=== PATIENT | male | born 2005 | race Caucasian/White ===

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

== ENCOUNTER 2024-02-06 22:45 | Outpatient (CLI) | payer OTHER, SELFPAY ==
--- OUTSIDE RECORDS SUMMARY | 2024-02-19 15:55 | XMS_ITS | Referral Summary ---
Author Organization [place] Address [address] [facility] [place] [address] Care Team Providers Care Tank Cleaner Name Role Phone Clinic, [facility] Primary Care Provider + Allergies Active Allergy Reactions Criticality Noted Date Comments Seasonal Allergies 12/06/2011 Symptoms include rhinnitis, itching eyes, etc. Medications Medication Sig Dispensed Refills Start Date End Date Status diphenhydrAMINE (BENADRYL) 25 MG capsuleIndications:Bip olar disorder, unspecified (H) Take 1 capsule by mouth At Bedtime. 30 capsule 0 12/12/2011 Active risperiDONE (RISPERDAL M-TABS) 0.5 MG disintegrating tabletIndications:Bipo lar disorder, unspecified (H) Take 1 tablet by mouth 2 times [...] Advance Directives For more information, please contact: [phone] * Full Code (Latest Code Status on File) Date Activated Date Inactivated Comments 12/06/2011 4:13 AM 12/13/2011 1:17 PM Care Teams Tank Cleaner Relationship Specialty Start Date End Date [facility] [address] [place] [phone] PCP - General 04/30/19
--- OUTSIDE RECORDS SUMMARY | 2024-02-19 15:55 | XMS_ITS | Clinical Summary ---
Author Organization [place] Address [address] [facility] [place] [address] Care Team Providers Care Dinkey Locomotive Operator Name Role Phone Clinic, [facility] Primary Care Provider + Allergies Active Allergy [...] Advance Directives For more information, please contact: [phone] * Full Code (Latest Code Status on File) Date Activated Date Inactivated Comments 12/06/2011 4:13 AM 12/13/2011 1:17 PM Care Teams Dinkey Locomotive Operator Relationship Specialty Start Date End Date [facility], [facility] [address] [place] [address] PCP - General 04/30/19
--- OUTSIDE RECORDS SUMMARY | 2024-02-19 15:55 | XMS_ITS | Encounter Summary ---
Author Organization [place] Address [address] [place] [address] Care Team Providers Care Crate Builder Name Role Phone [facility] Primary Care Provider + Encounter Details Date Type Department Care Team ([facility] st Contact Info) Description 12/05/2011 Telephone [facility] Behavioral Health Intake [address] [place] [address] Generic, Behavioral Intake, Social History Tobacco Use [...] on filedocumented in this encounter Care Teams Crate Builder Relationship Specialty Start Date End Date [facility], [facility] [address] [place] [phone] PCP - General 04/30/19 documented as of this encounter
--- OUTSIDE RECORDS SUMMARY | 2024-02-19 15:55 | XMS_ITS | Clinical Summary ---
Author Organization [facility] Address [place], [place] [address] Care Team Providers Care Chicken Hatchery Helper Name Role Phone Marie Cunningham MD Primary [...] Description 11/21/2023 4:20 PM CDT Orders Only [facility] [address] [place] [address] Lab 11/21/2023 Travel 11/20/[address] [facility] [address] [place] [address] Kellie Leung NP Lab 11/19/2023 4:25 PM CDT Office Visit [facility] [address] [place] [address] Kellie Leung, WATER PLANT MAINTENANCE MECHANIC Medication Management 11/19/2023 Travel from Last 3 Months Immunizations Name Administration Dates Next Due AMB Influenza, (Flumist) Maria De Jesus e Intranasal,LAIV4 (Flu Clinic Only) 01/28/2012 DTaP 10/19/2004 [id number] (Pediarix) 2003,2003,0 2003 DTaP-IPV (Kinrix) 07/15/2009 Dtap [...] Alcohol/Drug Paternal Grandfather Heart Disease Paternal Grandfather [place] Psychiatric illness Paternal Grandfather depression, violent Thyroid [...] Date Smoking Tobacco: Former Cigarettes 0.5 1 2 020 - 2020 Smokeless Tobacco: Current Snuff [...] for age 18-79 2021 COVID-19 vaccine series ( season) 2024 Influenza for age 9-49 01/12/2024 [...] - 4.9 g/dL 11/21/2023 11:09 PM CDT [facility] TR[facility] LABORATORY PROTEIN,TOTAL 6.6 6.0 - 8.0 g/dL 11/21/2023 11:09 PM CDT [facility] TR[facility] LAB[facility] BILIRUBIN,TOTAL 1.2 0.0 - 1.2 mg/dL 11/21/2023 11:09 PM CDT [facility] TR[facility] LAB[facility]ORY BILIRUBIN,DIRECT 0.3 0.0 - 0.3 mg/dL 11/21/2023 11:09 PM CDT [facility] TR[facility] LABORATORY BILIRUBIN,INDIRE CT 0.9(H) 0.2 - 0.8 mg/dL 11/21/2023 11:09 PM CDT [facility] TRAL LABORATORY ALK PHOSPHATASE 62 40 - 129 IU/L 11/21/2023 11:09 PM CDT [facility] ALT (SGPT) 46 10 - 50 IU/L 11/21/2023 11:09 PM CDT [facility] AST (SGOT) 28 10 - 50 IU/L 11/21/2023 11:09 PM CDT [facility] TR[facility]ORY Blood BLOOD SPECIMEN / Unknown Venipuncture / Unknown 11/21/2023 4:21 PM CDT 11/21/2023 4:21 PM CDT Kellie Leung WATER PLANT MAINTENANCE MECHANIC CHEMISTRY [facility] [address] [place] [address], [place] from Last 3 Months Care Teams Chicken Hatchery Helper Relationship Specialty [place] [address] [place] [address] PCP - General Family Practice 09/01/15
== END 2024-02-06 22:46 | disposition home or self-care (01) ==
LOC: AMB 02-19 15:53
PROVIDERS: Visit Provider Family Medicine
DX: T14.90XA Injury, unspecified, initial encounter (principal); F10.129 Alcohol abuse with intoxication, unspecified; V29.39XA Other motorcycle (driver) (passenger) injured in unspecified nontraffic accident, initial encounter; Y92.488 Other paved roadways as the place of occurrence of the external cause
CPT/HCPCS: A0998

== ENCOUNTER 2024-02-07 00:27 | Emergency (ER) | payer OTHER, SELFPAY ==
[2024-02-07 00:31] VITALS: BP 135/89; PULSE 89; RESP 20; TEMP 36.7; O2SAT 99
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
--- OUTSIDE RECORDS SUMMARY | 2024-02-07 00:32 | XMS_ITS | Encounter Summary ---
Author Organization [place] Address [address] [place] [address] Care Team Providers Care Dressage Judge Name Role Phone [facility] Primary Care Provider + Encounter Details Date Type Department Care Team ([facility] st Contact Info) Description 12/05/2011 Telephone [facility] Behavioral Health Intake [address] [place] [address] Generic, Behavioral Intake, Social History Tobacco Use Types Packs/Day Years Used Date Smoking Tobacco: Never Assessed Sex and Gender Information Value Date Recorded Sex Assigned at Male 09/26/2023 9:40 AM CDT Gender Identity Male 09/26/2023 9:40 AM CDT Sexual Orientation Straight 09/26/2023 9: 40 AM CDT documented as of this encounter Plan of Treatment Not on file documented as of this encounter Visit Diagnoses Not on filedocumented in this encounter Care Teams Dressage Judge Relationship Specialty Start Date End Date [facility] [address] [place] [phone] PCP - General 04/30/19 documented as of this encounter
--- OUTSIDE RECORDS SUMMARY | 2024-02-07 00:32 | XMS_ITS | Clinical Summary ---
Author Organization [place] Address [address] [facility] [place] [address] Care Team Providers Care Ultrasound Technologist Name Role Phone Clinic, [facility] Primary Care Provider + Allergies Active Allergy Reactions Criticality Noted Date Comments Seasonal Allergies 12/06/2011 Symptoms include rhinnitis, itching eyes, etc. Medications Medication Sig Dispensed Refills Start Date End Date Status diphenhydrAMINE (BENADRYL) 25 MG capsuleIndications:Bip olar disorder, unspecified Take 1 capsule by mouth At Bedtime. 30 capsule 0 12/12/2011 Active risperiDONE (RISPERDAL M-TABS) 0.5 MG disintegrating tabletIndications:Bipo lar disorder, unspecified Take 1 tablet by mouth 2 times daily. 60 tablet 0 12/12/2011 Active guanFACINE (TENEX) 1 MG tablet Take 1 tablet (1 mg) by mouth At Bedtime 30 tablet 04/30/2019 Active traZODone (DESYREL) 100 MG tablet Take 1 tablet (100 mg) by mouth at bedtime 30 tablet 09/25/2023 Active melatonin 3 MG tablet Take 1 tablet (3 mg) by mouth nightly as needed for sleep 30 tablet 09/25/2023 Active Active Problems Problem Noted Date Diagnosed Date Adjustment disorder with mixed anxiety and depre ssed mood 09/25/2023 Bipolar disorder 12/12/2011 Overview: Problem list name updated by automated process. Provider to review Suicidal ideation 12/06/2011 Immunizations Name Administration Dates Next Due DTaP, Unspecified 07/15/2009,10/19/2004 DTaP/HepB/IPV 2003,2003,2003 Flu, Unspecified 03/26/2007,06/24/2006 Historic Hib Hib-titer 10/19/2004,2003,05/2003 MMR 07/15/2009,07/31/2004 Pneumococcal (PCV 7) 07/31/2004,2003,10/13,2003 Poliovirus, inactivated (IPV) 07/15/2009 Varicella 07/15/2009,07/31/2004 Family History Medical History Relation Comments Bipolar Disorder Other Bipolar Disorder Paternal Uncle Schizophrenia Paternal Uncle Substance Abuse Paternal Uncle Relation Status Comments Other Paternal Uncle Social History Tobacco Use Types Packs/Day Years Used Date Smoking Tobacco: Never Assessed Alcohol Use Standard Drinks/Week Comments No 0 (1 standard drink = 0.6 oz pur e alcohol) Adolescent Education Answer Date Record ed Getting School Help Needed Not on file 09/24 Sex and Gender Information Value Date Recorded Sex Assigned at Male 09/26/2023 9:40 AM CDT Gender Identity Male 09/26/2023 9:40 AM CDT Sexual Orientation Straight 09/26/2023 9: 40 AM CDT Last Filed Vital Signs Vital Sign Reading Time Taken Comments Blood Pressure 137/98 09/25/2023 11:29 AM CDT Pulse 89 09/25/2023 11:29 AM CDT Temperature 37.2 ??C (98.9 ??F) 09/25/2023 8:08 AM CD T Respiratory Rate 20 09/25/2023 8:08 AM CDT Oxygen Saturation 99% 09/25/2023 11:31 AM CDT Inhaled Oxygen Concentration - - Weight 104 kg (229 lb 4.5 oz) 09/25/2023 8:08 AM CDT Height 188 cm (6' 2) 09/25/2023 8:08 AM CDT Body Mass Index 29.44 09/25/2023 8:08 AM CDT Plan of Treatment Health Maintenance Due Date Last Done Comments ADVANCE CARE PLANNING 2003 ANNUAL REVIEW OF HM ORDERS 2003 YEARLY PREVENTIVE VISIT 2003 HIV SCREENING 2018 HEPATITIS C SCREENING 2021 PHQ-2 (once per calendar year) 2023 COVID-19 Vaccine ( season) 2024 INFLUENZA VACCINE (#1) 2024 8, 01/28/2012, 03/26/2007, Additional history exists DTAP/TDAP/TD IMMUNIZATION (7 - Td or Tdap) 12/20/2025 12/21/2015, 07/15/2009, 07/15/2009, Additional history exists HEPATITIS B IMMUNIZATION Completed 004, 2003, 2003 Pneumococcal Vaccine: Pediatrics (0 to 5 Years) and At-Risk Patients (6 to 64 Years) Aged Out 07/31/2004, 2003, 2003, Additional history exists No longer eligible based on patient's age to complete this topic MENINGITIS IMMUNIZATION Aged Out 12/21/2015 No l onger eligible based on patient's age to complete this topic HPV IMMUNIZATION Completed 04/24/2018, 03/25/2017 RSV MONOCLONAL ANTIBODY Aged Out No l onger eligible based on patient's age to complete this topic Advance Directives For more information, please contact: [phone] * Full Code (Latest Code Status on File) Date Activated Date Inactivated Comments 12/06/2011 4:13 AM 12/13/2011 1:17 PM Care Teams Ultrasound Technologist Relationship Specialty Start Date End Date [facility] [address] [place] [phone] PCP - General 04/30/19
--- OUTSIDE RECORDS SUMMARY | 2024-02-07 00:32 | XMS_ITS | Referral Summary ---
Author Organization [place] Address [address] [facility] [place] [address] Care Team Providers Care Coastal Tug Mate Name Role Phone Clinic, [facility] Primary Care Provider + Allergies Active Allergy [...] 07/31/2004,2003,10/13,2003 Poliovirus, inactivated (IPV) 07/15/2009 Varicella 07/15/2009,07/31/2004 Social History Tobacco Use Types Packs/Day Years [...] 09/25/2023 8:08 AM CDT Plan of Treatment Not on file Advance Directives For more information, please contact: [phone] * Full Code (Latest Code Status on File) Date Activated Date Inactivated Comments 12/06/2011 4:13 AM 12/13/2011 1:17 PM Care Teams Coastal Tug Mate Relationship Specialty Start Date End Date [facility] [address] [place] [phone] PCP - General 04/30/19
--- OUTSIDE RECORDS SUMMARY | 2024-02-07 00:32 | XMS_ITS | Clinical Summary ---
Author Organization [facility] & [facility] Address [place], [place] [address] Care Team Providers Care Woodworking Machine Offbearer Name Role Phone Marie Cunningham MD Primary Care Provider + Allergies No known active allergies Medications Medication Sig Dispensed Refills Start Date End Date Status melatonin 5 mg tab tablet TAKE 1 TABLET BY MOUTH EVERY DAY AT BEDTIME NEEDED FOR SLEEP Active traZODone (DESYREL) 100 mg tabletIndications:Chr onic insomnia Take 1 Tablet (100 mg) by mouth at bedtime if needed for Sleep. 90 Tablet 1 11/19/2023 Active Active Problems No known active problems Resolved Problems Problem Noted Date Diagnosed Date Resolved Date Adjustment disorder with mix ed anxiety and depressed mood 09/25/2023 11/20/2023 Myopia of both eyes with astigmatism 03/16/2016 11/20/2023 Bipolar disorder 08/01/2010 11/20/2023 Overview (11/19/2023): Problem list name updated by automated process. 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) 08/01/2010 11/20/2023 Encounters Date Type Department Care Team Description 11/21/2023 4:20 PM CDT Orders Only [facility] [address] [place] [address] Lab 11/21/2023 Travel 11/20/2023 Telephone [facility] [address] [place] [address] Kellie Leung NP Lab 11/19/2023 4:25 PM CDT Office Visit [facility] [address] [place] [address] Kellie Leung, BOND CLERK Medication Management 11/19/2023 Travel 11/15/2023 Telephone [facility] [address] [place] [address] Marie Cunningham MD Error-please disregard from Last 3 Months Immunizations Name Administration Dates Next Due AMB Influenza, (Flumist) Maria De Jesus e Intranasal,LAIV4 (Flu Clinic Only) 01/28/2012 DTaP 10/19/2004 [id number] (Pediarix) 2003,2003,0 2003 DTaP-IPV (Kinrix) 07/15/2009 Dtap Unspecified Formulation 07/15/2009,10/20/19 05 HIB HbOC (HibTITER) 10/19/2004,2003,2003 HPV 9 (Gardasil 9) 04/24/2018,03/25/2017 Hepatitis A (Peds) 04/24/2018,03/25/2017 Inactivated Polio Vaccine 07/15/2009 Influenza Virus, Unspecified 03/26/2007,06/24/19 07 Influenza, IIV3 (Age >=3 years) 03/26/2007,06/24 Influenza, IIV4 (=>6mos) MDV 04/24/2018 MENINGOCOCCAL VACCINE 2 VIAL 2MO-55YO (MENVEO) 12/21/2015 MMR 07/15/2009,07/31/2004 Pneumococcal conj 7-Valent (Prevnar 7) 0 07/31/2004,2003,2003,08/11 Tdap 12/21/2015 Varicella Vaccine 07/15/2009,07/31/2004 Family History Medical History Relation Name Comments Hyperlipidemia Father Unknown Maternal Grandfather Cancer Maternal Grandmother skin Cancer-colon Maternal Grandmother Asthma Mother Alcohol/Drug Paternal Grandfather Heart Disease Paternal Grandfather [place] Psychiatric illness Paternal Grandfather depression, violent Thyroid Disease Paternal Grandmother Psychiatric illness Paternal Uncle 1 schi zophrenia Alcohol/Drug Paternal Uncle 2 Alcohol/Drug Paternal Uncle 3 Alcohol/Drug Paternal Uncle 4 Alcohol/Drug Paternal Uncle 5 Relation Name Status Comments Father Alive Maternal Grandfather Alive Maternal Grandmother Alive Mother Alive Paternal Grandfather Alive Paternal Grandmother Alive Paternal Uncle 1 Alive Paternal Uncle 2 Alive Paternal Uncle 3 Alive Paternal Uncle 4 Alive Paternal Uncle 5 Alive Social History Tobacco Use Types Packs/Day Years Used Date Smoking Tobacco: Former Cigarettes 0.5 1 020 - 2020 Smokeless Tobacco: Current Snuff Comments:Weekly use Alcohol Use Standard Drinks/Week Comments Not Currently 0 (1 standard drink = 0.6 oz pur e alcohol) sep 27 2023-sober date PHQ-2 Answer Date Recorded PHQ-2 TOTAL SCORE 2 11/19/2023 Social Connections Answer Date Recorded Frequency of Communication with Friends and Fami ly 0 11/19/2023 Financial Resource Strain Answer Date R ecorded Difficulty of Paying Living Expenses 3 11/19/2023 Difficulty of Paying Living Expenses Not on file 11/19/2023 Food Insecurity Answer Date Recorded Worried About Running Out of Food in the Last Ye ar 1 11/19/2023 Transportation Needs Answer Date Record ed Lack of Transportation (Medical) 1 11/19/2023 Housing Stability Answer Date Recorded Unable to Pay for Housing in the Last Year 1 11/19/2023 Sex and Gender Information Value Date Recorded Sex Assigned at Not on file Gender Identity Not on file Sexual Orientation Not on file Obstetrics History Last Filed Vital Signs Vital Sign Reading Time Taken Comments Blood Pressure 118/69 11/19/2023 4:43 PM CDT Pulse 90 11/19/2023 4:43 PM CDT Temperature 36.9 ??C (98.5 ??F) 10/03/2018 1 2:04 PM CDT Respiratory Rate 16 11/19/2023 4:43 PM CDT Oxygen Saturation 97% 11/19/2023 4:4 3 PM CDT Inhaled Oxygen Concentration - - Weight 104.5 kg (230 lb 4.8 oz) 11/19/2023 4:43 PM CDT with boots on Height 191.8 cm (6' 3.5) 11/19/2023 4: 43 PM CDT with boots on Body Mass Index 28.41 11/19/2023 4:43 PM CDT Plan of Treatment Health Maintenance Due Date Last Done Comments HIV for age 15-65 2018 Well Child Check for age 3-20 03/27/2019 03/27/2018, 12/21/2015, 07/14/2009, Additional history exists Hepatitis C screening for age 18-79 2021 COVID-19 vaccine series (24 season) 2024 Influenza for age 9-49 01/12/2024 8, 01/28/2012, 03/26/2007, Additional history exists BMI (ht and wt on same day) for age 18+ 11/18/2024 11/19/2023, 01/01/2022 Depression screening for age 12+ 11/20/2024 11/21/2023, 11/20/2023, 11/19/2023, Additional history exists Tetanus booster 12/20/2025 12/21/2015 Pneumococcal series for age 6-64 Aged Out 07/31/2004, 2003, 2003, Additional history exists No longer eligible based on patient's age to complete this topic Meningococcal series for age 11-21 Aged Out 12/21/2015 No longer eligible based on patient's age to complete this topic Tdap Completed 12/21/2015 HPV series for age 9-26 Completed 04/24/2018, 03/25 Procedures Procedure Name Priority Date/Time Associated Diagnosis Comments HEPATIC FUNCTION PANEL Routine 11/21/2023 4:21 PM CDT Elevated LFTs from Last 3 Months Results * (ABNORMAL) LIVER PANEL (HEPATIC FUNCTION PANEL) (11/21/2023 4:21 PM CDT) ALBUMIN 4.5 4.0 - 4.9 g/dL 11/21/2023 11:09 PM CDT [facility] LAB[facility]ORY PROTEIN,TOTAL 6.6 6.0 - 8.0 g/dL 11/21/2023 11:09 PM CDT [facility]ORY BILIRUBIN,TOTAL 1.2 0.0 - 1.2 mg/dL 11/21/2023 11:09 PM CDT [facility] TR[facility] LABORATORY BILIRUBIN,DIRECT 0.3 0.0 - 0.3 mg/dL 11/21/2023 11:09 PM CDT [facility] TRAL LABORATORY BILIRUBIN,INDIRE CT 0.9(H) 0.2 - 0.8 mg/dL 11/21/2023 11:09 PM CDT [facility] TRAL LABORATORY ALK PHOSPHATASE 62 40 - 129 IU/L 11/21/2023 11:09 PM CDT [facility] ALT (SGPT) 46 10 - 50 IU/L 11/21/2023 11:09 PM CDT [facility] AST (SGOT) 28 10 - 50 IU/L 11/21/2023 11:09 PM CDT [facility] Blood BLOOD SPECIMEN / Unknown Venipuncture / Unknown 11/21/2023 4:21 PM CDT 11/21/2023 4:21 PM CDT Kellie Leung BOND CLERK CHEMI[facility]Y [facility] [address] [place] [address], [place] from Last 3 Months Care Teams Woodworking Machine Offbearer Relationship Specialty [place] [address] [place] [address] PCP - General Family Practice 09/01/15
[2024-02-07 00:36] VITALS: BP 135/89; PULSE 89; RESP 20; TEMP 36.7; O2SAT 99
[2024-02-07 00:55] VITALS: BP 135/89; PULSE 89; RESP 20; TEMP 36.7
== END 2024-02-07 00:55 | disposition home or self-care (01) ==
LOC: ED 00:49
PROVIDERS: Emergency Provider Internal Medicine
DX: F10.129 Alcohol abuse with intoxication, unspecified (principal)
CPT/HCPCS: 99283

== ENCOUNTER 2024-03-20 19:59 | Emergency (ER) | payer OTHER, SELFPAY ==
--- OUTSIDE RECORDS SUMMARY | 2024-03-20 20:02 | XMS_ITS | Clinical Summary ---
Author Organization [facility] & [facility] Address [place], [place] [address] Care Team Providers Care Packaging Operator Name Role Phone Marie Cunningham MD Primary [...] deficit disorder w ith hyperactivity(314.01) 08/01/2010 11/20/2023 Immunizations Name Administration Dates Next Due AMB Influenza, (Flumist) Maria De Jesus e Intranasal,LAIV4 (Flu Clinic Only) 01/28/2012 DTaP 10/19/2004 [id number] (Pediarix) 2003,2003,0 2003 DTaP-IPV (Kinrix) 07/15/2009 Dtap [...] Alcohol/Drug Paternal Grandfather Heart Disease Paternal Grandfather [place] Psychiatric illness Paternal Grandfather depression, violent Thyroid [...] 2 11/19/2023 Social Connections Answer Date Recorded Do you often feel lonely or isolated from those around you? 0 11/19/2023 Financial Resource Strain Answer Date R ecorded Difficulty of Paying Living Expenses 3 11/19/2023 Difficulty of Paying Living Expenses Not on file 11/19/2023 Food Insecurity Answer Date Recorded Do you worry your food will run out before you are able to buy more? 1 11/19/2023 Transportation Needs Answer Date Record ed Does lack of transportation keep you from medica l appointments? 1 11/19/2023 Does lack of transportation keep you from work, meetings or getting things that you need? 1 11/19/2023 Housing Stability Answer Date Recorded What is your housing situation today? 1 11/19/2023 Sex and Gender Information Value [...] series for age 9-26 Completed 04/24/2018, 03/25 Care Teams Packaging Operator Relationship Specialty [place] [address] [place] [address] PCP - General Family Practice 09/01/15
--- OUTSIDE RECORDS SUMMARY | 2024-03-20 20:02 | XMS_ITS | Encounter Summary ---
Author Organization [place] Address [address] [place] [address] Care Team Providers Care Filterer Name Role Phone [facility], [facility] Primary Care Provider + Encounter Details Date Type Department Care Team ([facility] Contact Info) Description 12/05/2011 Telephone [facility] Intake [address] [place] [phone] Generic, Behavioral Intake, MD Social History Tobacco Use Types Packs/Day Years Used Date Smoking Tobacco: Never Assessed Sex and Gender Information Value Date Recorded Sex Assigned at Male 09/26/2023 9:40 AM CDT Legal Sex Male 5:18 AM NAT INSTRUCTOR Gender Identity Male 09/26/2023 9:40 AM CDT Sexual Orientation Straight 09/26/2023 9: 40 AM CDT documented as of this encounter Plan of Treatment Not on file documented as of this encounter Visit Diagnoses Not on filedocumented in this encounter Care Teams Filterer Relationship Specialty Start Date End Date [facility], [facility] [address] [place] [phone] PCP - General 04/30/19 documented as of this encounter
--- OUTSIDE RECORDS SUMMARY | 2024-03-20 20:02 | XMS_ITS | Clinical Summary ---
Author Organization [place] Address [facility] [place] [address] Care Team Providers Care Stewardesses Teacher Name Role Phone [facility], [facility] Primary Care Provider + Allergies Active Allergy Reactions Criticality Noted Date Comments Seasonal Allergies 12/06/2011 Symptoms include rhinnitis, itching eyes, etc. Medications diphenhydrAMINE (BENADRYL) 25 MG capsuleIndications: Bipolar disorder, unspecified (H) Take 1 capsule by mouth At Bedtime. 30 capsule 0 2 Active risperiDONE (RISPERDAL M-TABS) 0.5 MG disintegrating tabletIndications:B ipolar disorder, unspecified (H) Take 1 tablet by mouth 2 times daily. 60 tablet 0 2 Active guanFACINE (TENEX) 1 MG tablet Take 1 tablet (1 mg) by mouth At Bedtime 30 tablet 9 Active traZODone (DESYREL) 100 MG tablet Take 1 tablet (100 mg) by mouth at bedtime 30 tablet 4 Active melatonin 3 MG tablet Take 1 tablet (3 mg) by mouth nightly as needed for sleep 30 tablet 4 Active Active Problems Problem Noted Date Diagnosed Date Adjustment disorder with mixed anxiety and depre ssed mood 09/25/2023 Bipolar disorder 12/12/2011 Overview (02/11/2015): Problem list name updated by automated process. 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 Gender Identity Male 09/26/2023 9:40 AM CDT [...] (once per calendar year) 2023 COVID-19 Vaccine (1 - 2024-25 season) 2024 INFLUENZA VACCINE (#1) 2024 8, 01/28/2012, 03/26/2007, Additional history exists DTAP/TDAP/TD IMMUNIZATION (7 - Td or Tdap) 12/20/2025 12/21/2015, 07/15/2009, 07/15/2009, Additional history exists RSV VACCINE (1 - 1-dose 75+ series) 2078 HEPATITIS B IMMUNIZATION Completed 004, 2003, 2003 [...] on patient's age to complete this topic Insurance [employer] Member Subscriber Plan / Payer (Ef fective 2018-Present) Name:Frank Proctor Relation to Subscriber:Child Name:WERO PROCTOR Date of :1977 (Home) [address]: [address] [place] [address] Payer ID:[id number] (NAIC) Type:HMO Address: [place] [id number] Simple Admit Simple Admit Advance Directives For more information, please contact: [phone] * Full Code (Latest Code Status on File) Date Activated Date Inactivated Comments 12/06/2011 4:13 AM 12/13/2011 1:17 PM Care Teams Stewardesses Teacher Relationship Specialty Start Date End Date [facility] [address] [place] [phone] PCP - General 04/30/19
--- OUTSIDE RECORDS SUMMARY | 2024-03-20 20:02 | XMS_ITS | Referral Summary ---
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 COMMERCIAL Advance Directives For more information, please contact: [phone] * Full Code (Latest Code Status on File) Date Activated Date Inactivated Comments 12/06/2011 4:13 AM 12/13/2011 1:17 PM Care Teams Gum Machine Filler Relationship Specialty Start Date End Date [facility], [facility] [id number] [place], [place] [address] [phone] PCP - General 04/30/19
[2024-03-20 20:14] VITALS: BP 122/78; PULSE 122; RESP 16; TEMP 36.8; O2SAT 98; BMI 22.5
--- NOTE | 2024-03-20 20:31 | CRLHL7_ITS ---
For Patients: As a result of the Century Cures Act, medical imaging exams and procedure reports are released immediately into your electronic medical record. You may view this report before your referring provider. If you have questions, please contact your health care provider. INDICATION: Chest pain. TECHNIQUE: Chest 2 view. COMPARISON: None. FINDINGS: No focal consolidation, pleural effusion, or pneumothorax. Normal heart size and pulmonary vascularity. The bones are unremarkable. IMPRESSION: No acute cardiopulmonary findings. Dictated by Lindsey Foreman MD @ 03/20/2024 9:05:49 PM (Electronically Signed)
--- NOTE | 2024-03-20 20:36 | ED.GENADULT ---
HPI - General Adult General Date Seen: 03/20/24 Chief complaint: Chest Pain Stated complaint: heart palpitations Time Seen by Provider: 03/20/24 20:22 Source: patient Mode of arrival: ambulatory Limitations: no limitations History of Present Illness HPI narrative: Patient is a 18-year-old male presenting for palpitations. He has been having issues with palpitations and chest pain for several years now but has not been seen due to monetary issues. States symptoms have been going on since yesterday and got worse today. Pain radiates to his bilateral jaw and thinks it may go to his arms to but cannot say for sure. Describes the pain as oppressive and a 5/10 in intensity. Is a same symptoms she has been having on and off for a few years. They seem to happen randomly. Is not aware of any known heart issues. Denies lightheadedness, dizziness, fevers, chills, abdominal pain. Does have some shortness of breath when the palpitations occur. No other concerns noted. Does state he is feeling very anxious. Related Data Home Medications ?Medication ?Instructions ?Recorded ?Confirmed trazodone 100 mg tablet 100 mg PO QPM PRN insomnia 02/07/24 02/07/24 Allergies Allergy/AdvReac Type Severity Reaction Status Date / Time No Known Drug Allergies Allergy Verified 02/07/24 00:33 Review of Systems Status of ROS: Reports: 10 or more systems reviewed and unremarkable except as noted in History and below [facility] Medical History No significant past medical history Surgical History No significant past surgical history Social History Smoking Status: Never smoker Second hand tobacco smoke exposure: No Non-prescribed substance use: former substance user Exam Narrative: Exam Narrative: Const: Well-nourished, Well-developed, in mild distress Eyes: PERRL, no conjunctival injection, and symmetrical lids HENT: Atraumatic external nose and ears. Moist mucous membranes. Neck: Symmetric, trachea midline, No thyromegaly. CVS: RRR, No murmurs or gallops. Peripheral pulses 2+ and equal in all extremities RESP: Unlabored respiratory effort. Clear to auscultation bilaterally. GI: Nontender/Nondistended, No rebound or guarding. MSK:Extremities w/o deformity, Normal Active ROM Skin: Warm, Dry. No rashes or lesions. Neuro: Normal Muscle tone, No focal neurological deficits. Psych: Awake, Alert, & Oriented x3. Appears very anxious Const: Vital Signs, click to edit/add: Vital Signs - 24 hr 03/20/24 20:14 03/20/24 20:48 03/20/24 21:00 Temperature 98.2 F Pulse Rate 118 H 119 H Pulse Rate [Left F emoral] 122 H Respiratory Rate 16 Blood Pressure Blood Pressure [Ri ght Upper Arm] 122/78 Pulse Oximetry 98 98 95 Oxygen Delivery Me thod Room Air 03/20/24 21:09 03/20/24 21:15 03/20/24 21:30 Temperature Pulse Rate 119 H 122 H 123 H Pulse Rate [Left F emoral] Respiratory Rate Blood Pressure 122/89 Blood Pressure [Ri ght Upper Arm] Pulse Oximetry 95 98 98 Oxygen Delivery Me thod Course Vital Signs Vital signs: Initial Vital Signs Temperature 98.2 F 03/20/24 20:14 Temperature Source Temporal Artery Scan 03/20/24 20:14 Pulse Rate 122 H 03/20/24 20:14 Pulse Rhythm Regular 03/20/24 20:14 Respiratory Rate 16 03/20/24 20:14 Blood Pressure 122/78 03/20/24 20:14 Blood Pressure Mean 92 03/20/24 20:14 Blood Pressure Position Sitting 03/20/24 20:14 Pulse Oximetry 98 03/20/24 20:14 Oxygen Delivery Method Room Air 03/20/24 20:14 Vital Signs Temperature 98.2 F 03/20/24 20:14 Pulse Rate 122 H 03/20/24 20:14 Respiratory Rate 16 03/20/24 20:14 Blood Pressure 122/78 03/20/24 20:14 Pulse Oximetry 98 03/20/24 20:14 Oxygen Delivery Method Room Air 03/20/24 20:14 Temperature 98.2 F 03/20/24 20:14 Pulse Rate 123 H 03/20/24 21:30 Respiratory Rate 16 03/20/24 20:14 Blood Pressure 122/89 03/20/24 21:09 Pulse Oximetry 98 03/20/24 21:30 Oxygen Delivery Method Room Air 03/20/24 20:14 Medications Administered Medications: Discontinued Medications Generic Name Dose Route Start Last Admin Trade Name Xochitl PRN Reason Stop Dose Admin Lorazepam 1 mg 03/20/24 20:32 03/20/24 20:40 Lorazepam 2 Mg/Ml Inj IVP 03/20/24 20:33 1 mg ONCE ONE Administration Medical Decision Making MDM Narrative Medical decision making narrative: Patient is a 18-year-old male presenting to the emergency department for palpitations and chest pain. The differential diagnosis of chest pain is broad and includes common etiologies such as musculoskeletal strain, GERD, pneumonia, etc. More serious etiologies considered include PE, coronary artery disease, pneumothorax, aortic dissection, aortic aneurysm. Will do a D-dimer, troponin, EKG, BMP, COVID/flu/RSV, CBC, urinalysis, urine drug screen. Will also give him some Ativan for his anxiety. He seems very anxious and that is probably what is causing this anxiety. Was very fidgety and taking at the lines. Was also trying to take off the pulse ox and was swearing quite a bit about his symptoms while having difficulty sitting still for the EKG. Unsure if he has taking any drugs recently. EKG shows sinus tachycardia but no other concerning findings. D-dimer within normal limits. PE can be ruled out. Chest x-ray reviewed by myself the radiologist shows no concerning abnormalities. Urine drug screen shows no concerning abnormalities. CBC and BMP showed no concerning findings. Viral swabs are negative. Concerning symptoms have been going on for a while I do not believe a repeat troponin is necessary. Initial troponin within normal limits. At this point he is still tachycardic and still appearing very anxious even after the Ativan. He continues to want a rip everything off. I do not find any acute abnormalities though also I offered him a Zio patch for continuous monitoring. Did give him information is at a primary care follow-up to view the Zio patch. I did speak to his girlfriend also his states he does get a little bit loopy after he takes trazodone any did take trazodone prior to arrival. Patient will be discharged. Of note patient continued to act on throughout his time in the emergency department. We may have wait for his girlfriend to come and pick him up. When she arrived I asked her about his behavior and she states this is normal for him when he takes his trazodone. He has seemed to really understand what is going on or what I am same whether the girlfriend again states this is normal for him when he takes trazodone. She feels comfortable taking him home. I spoke to her about possible carbon monoxide poisoning she states gives an apartment in no on else having symptoms would be unlikely. Lab Data Labs: Lab Results 03/20/24 03/20/24 03/20/24 Range/Units 20:32 20:33 20:50 WBC 7.45 (4.50-11.00) K/uL RBC 5.30 (4.30-5.90) m/uL Hgb 16.3 (13.5-17.5) gm/dL Hct 47.2 (37.0-53.0) % MCV 89 (80-100) fL MCH 31 (26-34) pg MCHC 35 (32-36) gm/dL RDW Coeff of Radha 12.2 (11.5-15.5) % Plt Count 312 (140-440) K/uL Neut % (Auto) 48.5 (42.0-72.0) % Lymph % (Auto) 44.7 H (20-44) % Maries % (Auto) 5.9 (0.0-11.0) % Eos % (Auto) 0.5 (0.0-7.0) % Baso % (Auto) 0.3 (0.0-3.0) % Neut # (Auto) 3.61 (1.7-7.0) K/uL Lymph # (Auto) 3.30 H (0.90-2.90) K/uL Maries # (Auto) 0.40 (0.00-0.90) K/UL Eos # (Auto) 0.04 (0.00-0.50) K/uL Baso # (Auto) 0.02 (0.00-0.30) K/uL Abs Immat Gran (auto) 0.01 (0.00-0.30) K/uL Imm/Tot Granulo (auto) 0.1 % D-Dimer Quant (PE/DVT) 0.31 (0.00-0.50) ug/ml Sodium 145 (135-149) mmol/L Potassium 3.7 (3.6-5.1) mmol/L Chloride 102 (96-114) mmol/L Carbon Dioxide 25 (20-32) mmol/L Anion Gap 18 H (7-15) mEq/L BUN 9 (5-24) mg/dL Creatinine 1.0 (0.5-1.5) mg/dL Estimated Creat Clear 132.30 Estimated GFR 111 ml/min Glucose 86 (60-115) mg/dL Calcium 9.4 (8.4-10.6) mg/dL Urine Color Yellow (Yellow) Urine Appearance Clear (Clear) Urine pH 7.0 (5.0-8.5) Ur Specific [place] 1.015 (1.000-1.030) Urine Protein Negative (Negative) Urine Glucose (UA) Negative (Negative) Urine Ketones Negative (Negative) Urine Blood Negative (Negative) Urine Nitrite Negative (Negative) Urine Bilirubin Negative (Negative) Urine Urobilinogen 0.2 (0.2-1.0) Ur Leukocyte Esterase Negative (Negative) Urine RBC 0-2 (0-2) Urine WBC 0-2 (0-5) Ur Squamous Epith Cells None (None-Few) Urine Bacteria None (None) Urine Opiates Screen Negative (Negative) Ur Oxycodone Screen Negative (Negative) Urine Methadone Screen Negative (Negative) Ur Barbiturates Screen Negative (Negative) U Tricyclic Antidepress Negative (Negative) Ur Phencyclidine Scrn Negative (Negative) Ur Amphetamines Screen Negative (Negative) U Methamphetamines Scrn Negative (Negative) U Benzodiazepines Scrn Negative (Negative) Urine Cocaine Screen Negative (Negative) U Marijuana (THC) Screen Negative (Negative) Ur Drug Screen Comment See Note SARS-CoV-2 (PCR) Negative SARS-CoV-2 (Negative) Influenza Type A (PCR) Negative PCR FLU A (Negative) Influenza Type B (PCR) Negative PCR FLU B (Negative) RSV (PCR) Negative PCR RSV (Negative) Lab Acknowledgement POC Troponin I 0.00 L (0.01-0.04) ng/ml 03/20/24 Range/Units 21:54 WBC (4.50-11.00) K/uL RBC (4.30-5.90) m/uL Hgb (13.5-17.5) gm/dL Hct (37.0-53.0) % MCV (80-100) fL MCH (26-34) pg MCHC (32-36) gm/dL RDW Coeff of Radha (11.5-15.5) % Plt Count (140-440) K/uL Neut % (Auto) (42.0-72.0) % Lymph % (Auto) (20-44) % Maries % (Auto) (0.0-11.0) % Eos % (Auto) (0.0-7.0) % Baso % (Auto) (0.0-3.0) % Neut # (Auto) (1.7-7.0) K/uL Lymph # (Auto) (0.90-2.90) K/uL Maries # (Auto) (0.00-0.90) K/UL Eos # (Auto) (0.00-0.50) K/uL Baso # (Auto) (0.00-0.30) K/uL Abs Immat Gran (auto) (0.00-0.30) K/uL Imm/Tot Granulo (auto) % D-Dimer Quant (PE/DVT) (0.00-0.50) ug/ml Sodium (135-149) mmol/L Potassium (3.6-5.1) mmol/L Chloride (96-114) mmol/L Carbon Dioxide (20-32) mmol/L Anion Gap (7-15) mEq/L BUN (5-24) mg/dL Creatinine (0.5-1.5) mg/dL Estimated Creat Clear Estimated GFR ml/min Glucose (60-115) mg/dL Calcium (8.4-10.6) mg/dL Urine Color (Yellow) Urine Appearance (Clear) Urine pH (5.0-8.5) Ur Specific [place] (1.000-1.030) Urine Protein (Negative) Urine Glucose (UA) (Negative) Urine Ketones (Negative) Urine Blood (Negative) Urine Nitrite (Negative) Urine Bilirubin (Negative) Urine Urobilinogen (0.2-1.0) Ur Leukocyte Esterase (Negative) Urine RBC (0-2) Urine WBC (0-5) Ur Squamous Epith Cells (None-Few) Urine Bacteria (None) Urine Opiates Screen (Negative) Ur Oxycodone Screen (Negative) Urine Methadone Screen (Negative) Ur Barbiturates Screen (Negative) U Tricyclic Antidepress (Negative) Ur Phencyclidine Scrn (Negative) Ur Amphetamines Screen (Negative) U Methamphetamines Scrn (Negative) U Benzodiazepines Scrn (Negative) Urine Cocaine Screen (Negative) U Marijuana (THC) Screen (Negative) Ur Drug Screen Comment SARS-CoV-2 (PCR) (Negative) Influenza Type A (PCR) (Negative) Influenza Type B (PCR) (Negative) RSV (PCR) (Negative) Lab Acknowledgement Test Added POC Troponin I (0.01-0.04) ng/ml Imaging Data Chest x-ray: Attestation: I have reviewed the pertinent imaging results. Radiologist's impression: No acute cardiopulmonary findings. Dictated by Lindsey Foreman MD @ 03/20/2024 9:05:49 PM ECG Data Attestation: I personally reviewed and interpreted this ECG as follows: Prior ECG tracings: not available for review Interpretation: Sinus tachycardia with a rate of 124 beats per minute, rightward bleeding axis, normal intervals, normal axis, no ST or T-wave abnormalities. Discharge Plan Discharge Clinical Impression: Sinus tachycardia Patient Disposition: Home, Self-Care Condition: Stable Instructions: Tachycardia (ED) Additional Instructions: Make sure to wear the Zio patch for the full allotted time. On Saturday call the number that was provided for you on the card to set up a primary care follow-up appointment to review the results. Return to emergency department for any new or worsening symptoms. Activity Level: No Restrictions Discharge Diet: Regular Prescriptions: No Action trazodone 100 mg tablet 100 mg PO QPM PRN (Reason: insomnia) Follow Up/Referrals: Provider,Not a Local [Primary Care Provider] - Stand Alone Forms: [employer] Info Instructions
--- OUTSIDE RECORDS SUMMARY | 2024-03-20 20:37 | XMS_ITS | Clinical Summary ---
Author Organization [employer] [facility] Address [place], [place] [address] Care Team Providers Care Hogshead Opener Name Role Phone Marie Cunningham MD Primary [...] Intranasal,LAIV4 (Flu Clinic Only) 01/28/2012 DTaP 10/19/2004 [id number] (Pediarix) 2003,2003,0 2003 DTaP-IPV (Kinrix) 07/15/2009 Dtap [...] Alcohol/Drug Paternal Grandfather Heart Disease Paternal Grandfather [place] Psychiatric illness Paternal Grandfather depression, violent Thyroid [...] age 9-26 Completed 04/24/2018, 03/25 Care Teams Hogshead Opener Relationship Specialty [place] [address] [place] [address] PCP - General Family Practice 09/01/15
--- OUTSIDE RECORDS SUMMARY | 2024-03-20 20:37 | XMS_ITS | Encounter Summary ---
Author Organization [place] Address [address] [place] [address] Care Team Providers Care Candy Attendant Name Role Phone [facility], 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 [address] [place] [phone] PCP - General 04/30/19 documented as of this encounter
--- OUTSIDE RECORDS SUMMARY | 2024-03-20 20:37 | XMS_ITS | Clinical Summary ---
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 Gender Identity Male 09/26/2023 9:40 AM [...] patient's age to complete this topic Insurance [employer] Member Subscriber Plan / Payer (Ef fective 2018-Present) Name:Frank Proctor Relation to Subscriber:Child Name:WERO PROCTOR Date of :1977 (Home) Address: [address] [place] [id number] Payer ID:[id number] (NAIC) Type:HMO Address: [place] [id number] [facility] Advance Directives For more information, please contact: [phone] * Full Code (Latest Code Status on File) Date Activated Date Inactivated Comments 12/06/2011 4:13 AM 12/13/2011 1:17 PM Care Teams Care Transitions Manager Relationship Specialty Start Date End Date [facility] [address] [place] [phone] PCP - General 04/30/19
--- OUTSIDE RECORDS SUMMARY | 2024-03-20 20:37 | XMS_ITS | Referral Summary ---
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 Gender Identity Male 09/26/2023 9:40 AM CDT [...] Plan of Treatment Not on file Insurance [place] [employer] Member Subscriber Plan / Payer (Ef fective 2018-Present) Name:Frank Proctor Relation to Subscriber:Child Name:WERO PROCTOR Date of :1977 (Home) Address: [address] [place] [address] Payer ID:[id number] (NAIC) Type:HMO Address: [place] [id number] [employer] [facility] COMMERCIAL Advance Directives For more information, please contact: [phone] * Full Code (Latest Code Status on File) Date Activated Date Inactivated Comments 12/06/2011 4:13 AM 12/13/2011 1:17 PM Care Teams House Nurse Relationship Specialty Start Date End Date [facility], [facility] [id number] [place], [place] [address] [phone] PCP - General 04/30/19
[2024-03-20] MEDS: LORazepam 2 MG/ML inj 1 MG IVP (20:40)
[2024-03-20 20:48] VITALS: PULSE 118; O2SAT 98
[2024-03-20 20:55] LABS: Appearance Urine Clear (Clear); Bilirubin Urine Negative (Negative); Blood Urine Negative (Negative); Color Urine Yellow (Yellow); Glucose Urine Negative (Negative); Ketones Urine Negative (Negative); Leukocyte Esterase Urine Negative (Negative); Nitrite Urine Negative (Negative); Protein Urine Negative (Negative); Specific Gravity Urine 1.015 (1.000-1.030); Urobilinogen Urine 0.2 (0.2-1.0)
[2024-03-20 20:55] LABS: Basophils Absolute Auto 0.02 K/uL (0.00-0.30); Basophils Percent Auto 0.3 % (0.0-3.0); Eosinophils Absolute Auto 0.04 K/uL (0.00-0.50); Eosinophils Percent Auto 0.5 % (0.0-7.0); Hematocrit 47.2 % (37.0-53.0); Hemoglobin* 16.3 gm/dL (13.5-17.5); Immature Granulocytes Abs Auto 0.01 K/uL (0.00-0.30); Immature Granulocytes Pct Auto 0.1 %; Lymphocytes Percent Auto 44.7 % (20-44); Mean Corpuscular HGB Conc 35 gm/dL (32-36); Mean Corpuscular Hemoglobin 31 pg (26-34); Mean Corpuscular Volume 89 fL (80-100); Monocytes Percent Auto 5.9 % (0.0-11.0); Neutrophils Absolute Auto 3.61 K/uL (1.7-7.0); Neutrophils Percent Auto 48.5 % (42.0-72.0); Platelet Count* 312 K/uL (140-440); RDW Coefficient of Variation % 12.2 % (11.5-15.5); White Blood Count* 7.45 K/uL (4.50-11.00)
[2024-03-20 21:00] VITALS: PULSE 119; O2SAT 95
[2024-03-20 21:02] LABS: Slide Review Reflex No
[2024-03-20 21:04] LABS: Amphetamine Screen Urine Negative (Negative); Cannabinoid Screen Urine Negative (Negative); Cocaine Screen Urine Negative (Negative); Methamphetamines Screen Urine Negative (Negative); Opiate Screen Urine Negative (Negative); Phencyclidine Screen Urine Negative (Negative)
[2024-03-20 21:05] LABS: Barbiturate Screen Urine Negative (Negative); Benzodiazepines Screen Urine Negative (Negative); Methadone Screen Urine Negative (Negative); Oxycodone Screen Urine Negative (Negative); Tricyclic Antidepressant Urine Negative (Negative)
[2024-03-20 21:09] VITALS: BP 122/89; PULSE 119; O2SAT 95
[2024-03-20 21:09] LABS: Chloride* 102 mmol/L (96-114); Potassium* 3.7 mmol/L (3.6-5.1); Sodium* 145 mmol/L (135-149)
[2024-03-20 21:12] LABS: Anion Gap 18 mEq/L (7-15); Blood Urea Nitrogen* 9 mg/dL (5-24); Carbon Dioxide* 25 mmol/L (20-32); Estimated Glomerular Filt Rate 111 ml/min; Glucose* 86 mg/dL (60-115)
[2024-03-20 21:13] LABS: Calcium* 9.4 mg/dL (8.4-10.6)
[2024-03-20 21:14] LABS: D Dimer Quantitative* 0.31 ug/ml (0.00-0.50)
[2024-03-20 21:15] VITALS: PULSE 122; O2SAT 98
[2024-03-20 21:20] LABS: PCR FLU A Negative PCR FLU A (Negative); PCR FLU B Negative PCR FLU B (Negative); PCR RSV Negative PCR RSV (Negative); SARS PCR* Negative SARS-CoV-2 (Negative)
[2024-03-20 21:20] LABS: RBC Urine 0-2 (0-2); WBC Urine 0-2 (0-5)
[2024-03-20 21:30] VITALS: PULSE 123; O2SAT 98
--- NOTE | 2024-03-20 21:46 | ED.NURSE ---
Pt is ripping all his cardiac stickers off of himself and is leaving. Doctor is talking to his girlfriend at this time. Pt is getting dressed and keeps changing his mind about wearing a Ziopatch. Doctor is talking to pt at this time. Pt did agree to put his Ziopatch on, pt has all his discharge paperwork with him at this time. help desk rep is unable to set up a clinic appt for the patient. The pt was given the name of the [facility] and the phone number that he needs to call and set up his appt for follow-up with his Ziopatch. Pt was given his Ziopatch kit and this nurse reviewed in detail with patient care of his Ziopatch. Pt was all given all his dispatch paperwork. Doctor states it is okay for patient to discharge at this time. Pt is talking in clear sentences and is walking with a steady gait at this time and is dressed appropriately for the weather.
--- NOTE | 2024-03-20 22:13 | ED.NURSE ---
Pt's girlfriend Deborah came to the ER and was able to give pt a ride home after discharge.
== END 2024-03-20 22:12 | disposition home or self-care (01) ==
PROVIDERS: Emergency Provider Student in an Organized Health Care Education/Training Program
DX: R00.0 Tachycardia, unspecified (principal)
CPT/HCPCS: 36415; 71046; 80048; 80306; 81001; 84443; 84484; 85025; 85379; 87631; 93005; 93246; 96374; 99283; 99284; 99285; J2060

== ENCOUNTER 2024-03-31 16:25 | Emergency (ER) | payer OTHER, SELFPAY ==
--- OUTSIDE RECORDS SUMMARY | 2024-03-31 16:27 | XMS_ITS | Clinical Summary ---
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 Gender Identity Male 09/26/2023 9:40 AM CDT Sexual Orientation Straight 09/26/2023 9: 40 AM CDT Last Filed Vital Signs Vital Sign Reading Time Taken Comments Blood Pressure 137/98 09/25/2023 11:29 AM CDT Pulse 89 09/25/2023 11:29 AM CDT Temperature 37.2 C (98.9 F) 09/25/2023 8:08 AM CDT Respiratory Rate 20 09/25/2023 8:08 AM CDT [...] patient's age to complete this topic Insurance [employer] Advance Directives For more information, please contact: [phone] * Full Code (Latest Code Status on File) Date Activated Date Inactivated Comments 12/06/2011 4:13 AM 12/13/2011 1:17 PM Care Teams Termite Exterminator Helper Relationship Specialty Start Date End Date [facility], [facility] [address] [place] [address] PCP - General 04/30/19
--- OUTSIDE RECORDS SUMMARY | 2024-03-31 16:27 | XMS_ITS | Referral Summary ---
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
--- OUTSIDE RECORDS SUMMARY | 2024-03-31 16:27 | XMS_ITS | Clinical Summary ---
Author Organization [employer] [facility] Address [place], [place] [address] Care Team Providers Care Instrument Sterilizer Name Role Phone Marie Cunningham MD Primary [...] Intranasal,LAIV4 (Flu Clinic Only) 01/28/2012 DTaP 10/19/2004 [id number] (Pediarix) 2003,2003,0 2003 DTaP-IPV (Kinrix) 07/15/2009 Dtap [...] 90 11/19/2023 4:43 PM CDT Temperature 36.9 C (98.5 F) 10/03/2018 12:04 PM CDT Respiratory Rate 16 11/19/2023 4:43 [...] age 9-26 Completed 04/24/2018, 03/25 Care Teams Instrument Sterilizer Relationship Specialty [place] [address] [place] [address] PCP - General Family Practice 09/01/15
--- OUTSIDE RECORDS SUMMARY | 2024-03-31 16:27 | XMS_ITS | Encounter Summary ---
Author Organization [place] Address [address] [place] [address] Care Team Providers Care Creative Producer Name Role Phone [facility] Primary Care Provider + Encounter Details Date Type Department Care Team ([facility] Contact Info) Description 12/05/2011 Telephone [facility] Behavioral Health Intake [address] [place] [phone] Generic, Behavioral Intake, MD Social History Tobacco Use Types Packs/Day Years Used Date Smoking Tobacco: Never Assessed Sex and Gender Information Value Date Recorded Sex Assigned at Male 09/26/2023 9:40 AM CDT 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
--- NOTE | 2024-03-31 16:46 | ED.NURSE ---
Patient was here to have a follow up appointment for his Zio patch heart monitor. He did not realize that he was supposed to go to the clinic for follow up and he still has his patch on until 04/03. This science writer assisted patient and made him a follow up appointment with Dr. Anderson for 04/07/2024 to go over his Zio patch results. He declined any need for an ER visit today as he only wanted a clinic visit. He will send in Zio patch on 04/03/2024.
--- OUTSIDE RECORDS SUMMARY | 2024-03-31 16:56 | XMS_ITS | Clinical Summary ---
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
--- OUTSIDE RECORDS SUMMARY | 2024-03-31 16:56 | XMS_ITS | Encounter Summary ---
Author Organization [place] Address [address] [place] [address] Care Team Providers Care Caser Up Name Role Phone [facility] Primary Care Provider + Encounter Details Date Type Department Care Team ([facility] Contact Info) Description 12/05/2011 Telephone [facility] Behavioral Health Intake [address] [place] [phone] Generic, Behavioral Intake, MD Social History Tobacco Use Types Packs/Day Years Used Date Smoking Tobacco: Never Assessed Sex and Gender Information Value Date Recorded Sex Assigned at Male 09/26/2023 9:40 AM CDT 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
--- OUTSIDE RECORDS SUMMARY | 2024-03-31 16:56 | XMS_ITS | Clinical Summary ---
Author Organization [facility] Address [place], [place] [address] Care Team Providers Care Commercial Credit Reviewer Name Role Phone Marie Cunningham MD Primary [...] Intranasal,LAIV4 (Flu Clinic Only) 01/28/2012 DTaP 10/19/2004 [id number] (Pediarix) 2003,2003,0 2003 DTaP-IPV (Kinrix) 07/15/2009 Dtap [...] Alcohol/Drug Paternal Grandfather Heart Disease Paternal Grandfather [place] Psychiatric illness Paternal Grandfather depression, violent Thyroid [...] age 9-26 Completed 04/24/2018, 03/25 Care Teams Commercial Credit Reviewer Relationship Specialty [place] [address] [place] [address] PCP - General Family Practice 09/01/15
--- OUTSIDE RECORDS SUMMARY | 2024-03-31 16:56 | XMS_ITS | Referral Summary ---
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 Gender Identity Male 09/26/2023 9:40 AM CDT [...] Plan of Treatment Not on file Insurance [employer] COMMERCIAL Colibri Heart Valve [employer]ERCIAL [employer] COMMERCIAL Advance Directives For more information, please contact: [phone] * Full Code (Latest Code Status on File) Date Activated Date Inactivated Comments 12/06/2011 4:13 AM 12/13/2011 1:17 PM Care Teams Liquid Flavor Compounder Relationship Specialty Start Date End Date [facility], [facility] [place] [id number] [place], [place] [address] [place] [address] PCP - General 04/30/19
== END 2024-03-31 16:55 | disposition left against medical advice (07) ==
PROVIDERS: PCP Internal Medicine
DX: Z53.21 Procedure and treatment not carried out due to patient leaving prior to being seen by health care provider (principal)

== ENCOUNTER 2024-05-08 20:06 | Emergency (ER) | payer OTHER, SELFPAY ==
[2024-05-08 20:18] VITALS: BP 111/68; PULSE 91; RESP 18; TEMP 36.6; O2SAT 98; BMI 21.8
--- NOTE | 2024-05-08 20:39 | ED_ITS ---
HPI - General Adult General Date Seen: 05/08/24 <Dana Oquendo MD - Last Filed: 05/11/24 12:12> Chief complaint: Psychiatric Problem/Disorder <Dana Oquendo MD - Last Filed: 05/11/24 12:12> Stated complaint: mental health eval <Dana Oquendo MD - Last Filed: 05/11/24 12:12> Time Seen by Provider: 05/08/24 20:12 <Dana Oquendo MD - Last Filed: 05/11/24 12:12> Source: patient <Dana Oquendo MD - Last Filed: 05/11/24 12:12> History of Present Illness HPI narrative: Patient is a 18-year-old male brought in by police. He had called a suicide hotline and told them that he was going to shoot himself with a shotgun. Per the plain clothes police officer, officers were dispatched to his apartment complex. He was ultimately found with a friend of his, they walked toward officers when officers were addressing him through their PA system. He apparently had left in his truck, he had a shot gun with him at that time which police have confiscated. Has a friend with him names Valdemar who he says is his best friend. 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 He acknowledges that he is stressed and sad, he tells me that he regrets the impulsive comment to the suicide hotline and says that he does not have any plans to hurt himself or anyone else. He says that he has called his mother who is a nurse, that he is planning on outpatient follow-up and knows he needs mental health help. His mother is on the way here. He smells faintly of alcohol. <Dana Oquendo MD - Last Filed: 05/11/24 12:12> Related Data Home medications: Home Medications ?Medication ?Instructions ?Recorded ?Confirmed trazodone 100 mg tablet 100 mg PO QPM PRN insomnia 02/07/24 02/07/24 <Dana Oquendo MD - Last Filed: 05/11/24 12:12> Allergies/adverse reactions: Allergies Allergy/AdvReac Type Severity Reaction Status Date / Time No Known Drug Allergies Allergy Verified 03/27/24 12:33 <Dana Oquendo MD - Last Filed: 05/11/24 12:12> Review of Systems Status of ROS: Reports: 10 or more systems reviewed and unremarkable except as noted in History and below <Dana Oquendo MD - Last Filed: 05/11/24 12:12> [facility] Medical History: Medical History Costochondritis (05/29/22) ?M94.0 - Chondrocostal junction syndrome [Tietze] (ICD-10) <Dana Oquendo MD - Last Filed: 05/11/24 12:12> Surgical History: Surgical History No significant past surgical history <Dana Oquendo MD - Last Filed: 05/11/24 12:12> Social History: Social History Smoking Status: Never smoker Do you use any of these nicotine containing products: None Second hand tobacco smoke exposure: No How often do you have a drink containing alcohol: monthly or less How many standard drinks containing alcohol do you have on a typical day: 1 or 2 How often do you have six or more drinks on one occasion: Less than monthly AUDIT-C Alcohol total score: 2 Non-prescribed substance use: former substance user service: No <Dana Oquendo MD - Last Filed: 05/11/24 12:12> Exam Narrative: Exam Narrative: Vital signs reviewed In general, alert, nontoxic male. Clinically sober. Well groomed, reasonable eye contact. He is cooperative and calm at this time. Head: Normocephalic, atraumatic. Eyes: Sclera clear. Pupils equal and reactive. ENT: Mucous membranes moist. Neck: Supple without adenopathy. Heart: Regular rate and rhythm without murmur. Lungs: Clear. No increased work of breathing, crackles or wheezes. Neurologic: Alert, conversant. Speech fluent, face symmetric. Moves all extremities equally. Skin: Warm, dry well perfused. Affect: Normal. <Dana Oquendo MD - Last Filed: 05/11/24 12:12> Const: Vital Signs, click to edit/add: Vital Signs - 24 hr 05/10/24 18:36 05/10/24 21:53 05/10/24 23:00 Pulse Rate [Pulse Oximeter] 103 H 84 Respiratory Rate 16 16 16 Blood Pressure [Ri ght Upper Arm] 122/81 103/73 Pulse Oximetry 98 97 Oxygen Delivery Me thod Room Air Room Air <Dana Oquendo MD - Last Filed: 05/11/24 12:12> Vital Signs, click to edit/add: Vital Signs - 24 hr 05/10/24 18:36 05/10/24 21:53 05/10/24 23:00 Pulse Rate [Pulse Oximeter] 103 H 84 Respiratory Rate 16 16 16 Blood Pressure [Ri ght Upper Arm] 122/81 103/73 Pulse Oximetry 98 97 Oxygen Delivery Me thod Room Air Room Air <Luna Mcduffie MD - Last Filed: 05/10/24 07:53> Vital Signs, click to edit/add: Vital Signs - 24 hr 05/10/24 18:36 05/10/24 21:53 05/10/24 23:00 Pulse Rate [Pulse Oximeter] 103 H 84 Respiratory Rate 16 16 16 Blood Pressure [Ri ght Upper Arm] 122/81 103/73 Pulse Oximetry 98 97 Oxygen Delivery Me thod Room Air Room Air <Kelli Medrano MD - Last Filed: 05/12/24 00:11> Vital Signs, click to edit/add: Vital Signs - 24 hr 05/10/24 18:36 05/10/24 21:53 05/10/24 23:00 Pulse Rate [Pulse Oximeter] 103 H 84 Respiratory Rate 16 16 16 Blood Pressure [Ri ght Upper Arm] 122/81 103/73 Pulse Oximetry 98 97 Oxygen Delivery Me thod Room Air Room Air <Taj Samuels MD - Last Filed: 05/09/24 23:26> Documenting provider has reviewed patient's vital signs: yes <Dana Oquendo MD - Last Filed: 05/11/24 12:12> Course Course ED Course: I spoke at length with the patient and also spoke with his friend. I am awaiting arrival of his mother so that I can talk with her as well. I also spoke with the police, who informed me that he was in fact in his car with a loaded shotgun. The gun was unloaded by his friend who found him just before police arrived, and was confiscated by police. After speaking with his mother, she has significant concerns about any outpatient plan, she is worried about all of the stressors that he has right now and would prefer inpatient placement. Patient was evaluated by Greg, I had both the nurse and the psychiatric nurse practitioner speak with him at length, and they also spoke with his mother. He is significantly minimizing the events of tonight, he is adamant that he wants to go home, but at this point we are all in agreement that we do not feel he can contract for safety. I am concerned about impulsivity and his tendency to minimize tonight's events, as well as his according to his mother fairly routine alcohol use. I did speak with Frank about this plan. He has become increasingly agitated and uncooperative. He is refusing to change out of clothes into scrubs, refusing search in order to remain in his clothes, refusing labs and asking what will happen if he leaves. As a result, I have placed him on a hold, and we are giving Zyprexa IM to control agitation and behavior. He has not been aggressive toward staff or overtly threatening, he is simply angry that we are not letting him go. <Dana Oquendo MD - Last Filed: 05/11/24 12:12> Reevaluation(s) Time of Reevaluation #1: 08:25 <Luna Mcduffie MD - Last Filed: 05/10/24 07:53> Reevaluation #1: Dr. Mcduffie- no issues overnight. Patient has p.r.n. agitation medicines ordered which he has not needed. He did willingly take a dose of olanzapine prior to my arrival for Dr. Oquendo. He has been calmer with this. Labs reviewed. No surprises. Blood pressures have been borderline low the patient is sleeping. Not unusual for someone his age. I do still think that he requires inpatient treatment. Will hand over care to incoming day shift partner. We were unable to locate a facility for inpatient treatment due to bed availability. We will need to consult Greg again in the morning and continue to pursue this. <Luna Mcduffie MD - Last Filed: 05/10/24 07:53> Time of Reevaluation #2: 13:15 <Kelli Medrano MD - Last Filed: 05/12/24 00:11> Reevaluation #2: Went to discuss with Frank his refusal of the COVID swab. He states we are making things worse, just wants to go home, states he will be staying with his mom and has an outpatient plan. I have had subsequent time to review notes, does not sound like that is the optimal plan for him. Reviewed with him that we really need to have him see Psychiatry and have emergent psychiatric evaluation. I cannot provide that here. He is frustrated, wants to be discharged but does agree to allow his nurse to do the COVID swab. Reviewed with Frank that I ultimately would love for all of our patients to be able to go home, but like other patients with other disease processes that we do not have the Specialty for here, patient sometimes need to be referred to other facilities to have that evaluation. <Kelli Medrano MD - Last Filed: 05/12/24 00:11> Reevaluation #3: [id number] patient remained cooperative on my shift, waiting for placement. <Taj Samuels MD - Last Filed: 05/09/24 23:26> Additional Reevaluation(s): - Dr. Mcduffie- patient slept almost all of my shift. He was observed on the video monitors only. Vital signs reviewed. Patient is stable. Has not required any of the p.r.n. medications. Did not have any interactions with staff during my shift. No behavioral concerns, outbursts or other abnormalities. Did not do a new assessment, would recommend this again on day shift. <Luna Mcduffie MD - Last Filed: 05/10/24 07:53> Vital Signs Vital signs: Initial Vital Signs Temperature 97.9 F 05/08/24 20:18 Temperature Source Temporal Artery Scan 05/08/24 20:18 Pulse Rate 91 05/08/24 20:18 Pulse Rhythm Regular 05/08/24 20:18 Respiratory Rate 18 05/08/24 20:18 Blood Pressure 111/68 05/08/24 20:18 Blood Pressure Mean 82 05/08/24 20:18 Blood Pressure Position Sitting 05/08/24 20:18 Pulse Oximetry 98 05/08/24 20:18 Oxygen Delivery Method Room Air 05/08/24 20:18 Vital Signs Temperature 97.9 F 05/08/24 20:18 Pulse Rate 91 05/08/24 20:18 Respiratory Rate 18 05/08/24 20:18 Blood Pressure 111/68 05/08/24 20:18 Pulse Oximetry 98 05/08/24 20:18 Oxygen Delivery Method Room Air 05/08/24 20:18 Temperature 97.8 F 05/09/24 15:14 Pulse Rate 84 05/10/24 21:53 Respiratory Rate 16 05/10/24 23:00 Blood Pressure 103/73 05/10/24 21:53 Pulse Oximetry 97 05/10/24 21:53 Oxygen Delivery Method Room Air 05/10/24 21:53 <Dana Oquendo MD - Last Filed: 05/11/24 12:12> Initial Vital Signs Temperature 97.9 F 05/08/24 20:18 Temperature Source Temporal Artery Scan 05/08/24 20:18 Pulse Rate 91 05/08/24 20:18 Pulse Rhythm Regular 05/08/24 20:18 Respiratory Rate 18 05/08/24 20:18 Blood Pressure 111/68 05/08/24 20:18 Blood Pressure Mean 82 05/08/24 20:18 Blood Pressure Position Sitting 05/08/24 20:18 Pulse Oximetry 98 05/08/24 20:18 Oxygen Delivery Method Room Air 05/08/24 20:18 Vital Signs Temperature 97.9 F 05/08/24 20:18 Pulse Rate 91 05/08/24 20:18 Respiratory Rate 18 05/08/24 20:18 Blood Pressure 111/68 05/08/24 20:18 Pulse Oximetry 98 05/08/24 20:18 Oxygen Delivery Method Room Air 05/08/24 20:18 Temperature 97.8 F 05/09/24 15:14 Pulse Rate 84 05/10/24 21:53 Respiratory Rate 16 05/10/24 23:00 Blood Pressure 103/73 05/10/24 21:53 Pulse Oximetry 97 05/10/24 21:53 Oxygen Delivery Method Room Air 05/10/24 21:53 <Luna Mcduffie MD - Last Filed: 05/10/24 07:53> Initial Vital Signs Temperature 97.9 F 05/08/24 20:18 Temperature Source Temporal Artery Scan 05/08/24 20:18 Pulse Rate 91 05/08/24 20:18 Pulse Rhythm Regular 05/08/24 20:18 Respiratory Rate 18 05/08/24 20:18 Blood Pressure 111/68 05/08/24 20:18 Blood Pressure Mean 82 05/08/24 20:18 Blood Pressure Position Sitting 05/08/24 20:18 Pulse Oximetry 98 05/08/24 20:18 Oxygen Delivery Method Room Air 05/08/24 20:18 Vital Signs Temperature 97.9 F 05/08/24 20:18 Pulse Rate 91 05/08/24 20:18 Respiratory Rate 18 05/08/24 20:18 Blood Pressure 111/68 05/08/24 20:18 Pulse Oximetry 98 05/08/24 20:18 Oxygen Delivery Method Room Air 05/08/24 20:18 Temperature 97.8 F 05/09/24 15:14 Pulse Rate 84 05/10/24 21:53 Respiratory Rate 16 05/10/24 23:00 Blood Pressure 103/73 05/10/24 21:53 Pulse Oximetry 97 05/10/24 21:53 Oxygen Delivery Method Room Air 05/10/24 21:53 <Kelli Medrano MD - Last Filed: 05/12/24 00:11> Initial Vital Signs Temperature 97.9 F 05/08/24 20:18 Temperature Source Temporal Artery Scan 05/08/24 20:18 Pulse Rate 91 05/08/24 20:18 Pulse Rhythm Regular 05/08/24 20:18 Respiratory Rate 18 05/08/24 20:18 Blood Pressure 111/68 05/08/24 20:18 Blood Pressure Mean 82 05/08/24 20:18 Blood Pressure Position Sitting 05/08/24 20:18 Pulse Oximetry 98 05/08/24 20:18 Oxygen Delivery Method Room Air 05/08/24 20:18 Vital Signs Temperature 97.9 F 05/08/24 20:18 Pulse Rate 91 05/08/24 20:18 Respiratory Rate 18 05/08/24 20:18 Blood Pressure 111/68 05/08/24 20:18 Pulse Oximetry 98 05/08/24 20:18 Oxygen Delivery Method Room Air 05/08/24 20:18 Temperature 97.8 F 05/09/24 15:14 Pulse Rate 84 05/10/24 21:53 Respiratory Rate 16 05/10/24 23:00 Blood Pressure 103/73 05/10/24 21:53 Pulse Oximetry 97 05/10/24 21:53 Oxygen Delivery Method Room Air 05/10/24 21:53 <Taj Samuels MD - Last Filed: 05/09/24 23:26> Medications Administered Medications: Discontinued Medications Generic Name Dose Route Start Last Admin Trade Name Freq PRN Reason Stop Dose Admin Lorazepam 1 - 2 mg 05/09/24 00:39 05/10/24 02:43 Lorazepam 1 Mg Tablet PO 1 mg Q1H PRN Administration Anxiety Nicotine 1 patch 05/10/24 21:15 05/10/24 21:52 Nicotine 21 Mg Patch TRANSDERMA 1 patch Q24H LIANET Administration Olanzapine 10 mg 05/08/24 23:03 05/08/24 23:19 Olanzapine 5 Mg/Ml Inj IM 05/08/24 23:04 10 mg ONCE ONE Administration Trazodone HCl 100 mg 05/09/24 00:39 05/10/24 21:52 Trazodone Hcl 50 Mg Tablet PO 100 mg HS PRN Administration <Dana Oquendo MD - Last Filed: 05/11/24 12:12> Discontinued Medications Generic Name Dose Route Start Last Admin Trade Name Freq PRN Reason Stop Dose Admin Lorazepam 1 - 2 mg 05/09/24 00:39 05/10/24 02:43 Lorazepam 1 Mg Tablet PO 1 mg Q1H PRN Administration Anxiety Nicotine 1 patch 05/10/24 21:15 05/10/24 21:52 Nicotine 21 Mg Patch TRANSDERMA 1 patch Q24H LIANET Administration Olanzapine 10 mg 05/08/24 23:03 05/08/24 23:19 Olanzapine 5 Mg/Ml Inj IM 05/08/24 23:04 10 mg ONCE ONE Administration Trazodone HCl 100 mg 05/09/24 00:39 05/10/24 21:52 Trazodone Hcl 50 Mg Tablet PO 100 mg HS PRN Administration <Luna Mcduffie MD - Last Filed: 05/10/24 07:53> Discontinued Medications Generic Name Dose Route Start Last Admin Trade Name Freq PRN Reason Stop Dose Admin Lorazepam 1 - 2 mg 05/09/24 00:39 05/10/24 02:43 Lorazepam 1 Mg Tablet PO 1 mg Q1H PRN Administration Anxiety Nicotine 1 patch 05/10/24 21:15 05/10/24 21:52 Nicotine 21 Mg Patch TRANSDERMA 1 patch Q24H LIANET Administration Olanzapine 10 mg 05/08/24 23:03 05/08/24 23:19 Olanzapine 5 Mg/Ml Inj IM 05/08/24 23:04 10 mg ONCE ONE Administration Trazodone HCl 100 mg 05/09/24 00:39 05/10/24 21:52 Trazodone Hcl 50 Mg Tablet PO 100 mg HS PRN Administration <Kelli Medrano MD - Last Filed: 05/12/24 00:11> Discontinued Medications Generic Name Dose Route Start Last Admin Trade Name Freq PRN Reason Stop Dose Admin Lorazepam 1 - 2 mg 05/09/24 00:39 05/10/24 02:43 Lorazepam 1 Mg Tablet PO 1 mg Q1H PRN Administration Anxiety Nicotine 1 patch 05/10/24 21:15 05/10/24 21:52 Nicotine 21 Mg Patch TRANSDERMA 1 patch Q24H LIANET Administration Olanzapine 10 mg 05/08/24 23:03 05/08/24 23:19 Olanzapine 5 Mg/Ml Inj IM 05/08/24 23:04 10 mg ONCE ONE Administration Trazodone HCl 100 mg 05/09/24 00:39 05/10/24 21:52 Trazodone Hcl 50 Mg Tablet PO 100 mg HS PRN Administration <Taj Samuels MD - Last Filed: 05/09/24 23:26> Medical Decision Making Lab Data Labs: Lab Results 05/08/24 05/08/24 05/09/24 Range/Units 00:21 12:38 00:21 WBC 6.85 (4.50-11.00) K/uL RBC 4.47 (4.30-5.90) m/uL Hgb 14.1 (13.5-17.5) gm/dL Hct 40.9 (37.0-53.0) % MCV 92 (80-100) fL MCH 32 (26-34) pg MCHC 35 (32-36) gm/dL Plt Count 250 (140-440) K/uL Neut % (Auto) 51.6 (42.0-72.0) % Lymph % (Auto) 43.5 (20-44) % [place] % (Auto) 5.3 (0.0-11.0) % Eos % (Auto) 0.4 (0.0-7.0) % Baso % (Auto) 0.1 (0.0-3.0) % Neut # (Auto) 3.50 (1.7-7.0) K/uL Lymph # (Auto) 3.00 H (0.90-2.90) K/uL [place] # (Auto) 0.40 (0.00-0.90) K/UL Eos # (Auto) 0.00 (0.00-0.50) K/uL Baso # (Auto) 0.00 (0.00-0.30) K/uL Sodium 139 (135-149) mmol/L Potassium 3.5 L (3.6-5.1) mmol/L Chloride 104 (96-114) mmol/L Carbon Dioxide 23 (20-32) mmol/L Anion Gap 12 (7-15) mEq/L BUN 9 (5-24) mg/dL Creatinine 0.5 (0.5-1.5) mg/dL Estimated Creat Clear 257.04 Estimated GFR 150 ml/min Glucose 87 (60-115) mg/dL Calcium 9.1 (8.4-10.6) mg/dL TSH 3.600 (0.270-4.200) uIU/mL Urine Color Curry A (Yellow) Urine Appearance Clear (Clear) Urine pH 6.0 (5.0-8.5) Ur Specific [place] >= 1.030 (1.000-1.030) Urine Protein 1+ A (Negative) Urine Glucose (UA) Negative (Negative) Urine Ketones 3+ A (Negative) Urine Blood Negative (Negative) Urine Nitrite Negative (Negative) Urine Bilirubin 2+ A (Negative) Urine Urobilinogen 1.0 (0.2-1.0) Ur Leukocyte Esterase Negative (Negative) Urine RBC 0-2 (0-2) Urine WBC 0-2 (0-5) Ur Squamous Epith Cells Few (None-Few) Urine Bacteria Few A (None) Urine Mucus Moderate A (None) Salicylates < 1.0 L (1.0-10) mg/dL Urine Opiates Screen Negative (Negative) Ur Oxycodone Screen Negative (Negative) Urine Methadone Screen Negative (Negative) Acetaminophen < 10.0 L (10.0-30.0) ug/mL Ur Barbiturates Screen Negative (Negative) U Tricyclic Antidepress Negative (Negative) Ur Phencyclidine Scrn Negative (Negative) Ur Amphetamines Screen Negative (Negative) U Methamphetamines Scrn Negative (Negative) U Benzodiazepines Scrn POSITIVE A (Negative) Urine Cocaine Screen Negative (Negative) U Marijuana (THC) Screen POSITIVE A (Negative) Ur Drug Screen Comment See Note Ethyl Alcohol 0.12 H (0.01-0.03) % SARS-CoV-2 (PCR) (Negative) 05/09/24 05/10/24 Range/Units 13:15 13:10 WBC (4.50-11.00) K/uL RBC (4.30-5.90) m/uL Hgb (13.5-17.5) gm/dL Hct (37.0-53.0) % MCV (80-100) fL MCH (26-34) pg MCHC (32-36) gm/dL Plt Count (140-440) K/uL Neut % (Auto) (42.0-72.0) % Lymph % (Auto) (20-44) % [place] % (Auto) (0.0-11.0) % Eos % (Auto) (0.0-7.0) % Baso % (Auto) (0.0-3.0) % Neut # (Auto) (1.7-7.0) K/uL Lymph # (Auto) (0.90-2.90) K/uL [place] # (Auto) (0.00-0.90) K/UL Eos # (Auto) (0.00-0.50) K/uL Baso # (Auto) (0.00-0.30) K/uL Sodium (135-149) mmol/L Potassium (3.6-5.1) mmol/L Chloride (96-114) mmol/L Carbon Dioxide (20-32) mmol/L Anion Gap (7-15) mEq/L BUN (5-24) mg/dL Creatinine (0.5-1.5) mg/dL Estimated Creat Clear Estimated GFR ml/min Glucose (60-115) mg/dL Calcium (8.4-10.6) mg/dL TSH (0.270-4.200) uIU/mL Urine Color (Yellow) Urine Appearance (Clear) Urine pH (5.0-8.5) Ur Specific [place] (1.000-1.030) Urine Protein (Negative) Urine Glucose (UA) (Negative) Urine Ketones (Negative) Urine Blood (Negative) Urine Nitrite (Negative) Urine Bilirubin (Negative) Urine Urobilinogen (0.2-1.0) Ur Leukocyte Esterase (Negative) Urine RBC (0-2) Urine WBC (0-5) Ur Squamous Epith Cells (None-Few) Urine Bacteria (None) Urine Mucus (None) Salicylates (1.0-10) mg/dL Urine Opiates Screen (Negative) Ur Oxycodone Screen (Negative) Urine Methadone Screen (Negative) Acetaminophen (10.0-30.0) ug/mL Ur Barbiturates Screen (Negative) U Tricyclic Antidepress (Negative) Ur Phencyclidine Scrn (Negative) Ur Amphetamines Screen (Negative) U Methamphetamines Scrn (Negative) U Benzodiazepines Scrn (Negative) Urine Cocaine Screen (Negative) U Marijuana (THC) Screen (Negative) Ur Drug Screen Comment Ethyl Alcohol < 0.01 L (0.01-0.03) % SARS-CoV-2 (PCR) Negative SARS-CoV-2 (Negative) <Dana Oquendo MD - Last Filed: 05/11/24 12:12> Lab Results 05/08/24 05/08/24 05/09/24 Range/Units 00:21 12:38 00:21 WBC 6.85 (4.50-11.00) K/uL RBC 4.47 (4.30-5.90) m/uL Hgb 14.1 (13.5-17.5) gm/dL Hct 40.9 (37.0-53.0) % MCV 92 (80-100) fL MCH 32 (26-34) pg MCHC 35 (32-36) gm/dL Plt Count 250 (140-440) K/uL Neut % (Auto) 51.6 (42.0-72.0) % Lymph % (Auto) 43.5 (20-44) % [place] % (Auto) 5.3 (0.0-11.0) % Eos % (Auto) 0.4 (0.0-7.0) % Baso % (Auto) 0.1 (0.0-3.0) % Neut # (Auto) 3.50 (1.7-7.0) K/uL Lymph # (Auto) 3.00 H (0.90-2.90) K/uL [place] # (Auto) 0.40 (0.00-0.90) K/UL Eos # (Auto) 0.00 (0.00-0.50) K/uL Baso # (Auto) 0.00 (0.00-0.30) K/uL Sodium 139 (135-149) mmol/L Potassium 3.5 L (3.6-5.1) mmol/L Chloride 104 (96-114) mmol/L Carbon Dioxide 23 (20-32) mmol/L Anion Gap 12 (7-15) mEq/L BUN 9 (5-24) mg/dL Creatinine 0.5 (0.5-1.5) mg/dL Estimated Creat Clear 257.04 Estimated GFR 150 ml/min Glucose 87 (60-115) mg/dL Calcium 9.1 (8.4-10.6) mg/dL TSH 3.600 (0.270-4.200) uIU/mL Urine Color Curry A (Yellow) Urine Appearance Clear (Clear) Urine pH 6.0 (5.0-8.5) Ur Specific [place] >= 1.030 (1.000-1.030) Urine Protein 1+ A (Negative) Urine Glucose (UA) Negative (Negative) Urine Ketones 3+ A (Negative) Urine Blood Negative (Negative) Urine Nitrite Negative (Negative) Urine Bilirubin 2+ A (Negative) Urine Urobilinogen 1.0 (0.2-1.0) Ur Leukocyte Esterase Negative (Negative) Urine RBC 0-2 (0-2) Urine WBC 0-2 (0-5) Ur Squamous Epith Cells Few (None-Few) Urine Bacteria Few A (None) Urine Mucus Moderate A (None) Salicylates < 1.0 L (1.0-10) mg/dL Urine Opiates Screen Negative (Negative) Ur Oxycodone Screen Negative (Negative) Urine Methadone Screen Negative (Negative) Acetaminophen < 10.0 L (10.0-30.0) ug/mL Ur Barbiturates Screen Negative (Negative) U Tricyclic Antidepress Negative (Negative) Ur Phencyclidine Scrn Negative (Negative) Ur Amphetamines Screen Negative (Negative) U Methamphetamines Scrn Negative (Negative) U Benzodiazepines Scrn POSITIVE A (Negative) Urine Cocaine Screen Negative (Negative) U Marijuana (THC) Screen POSITIVE A (Negative) Ur Drug Screen Comment See Note Ethyl Alcohol 0.12 H (0.01-0.03) % SARS-CoV-2 (PCR) (Negative) 05/09/24 05/10/24 Range/Units 13:15 13:10 WBC (4.50-11.00) K/uL RBC (4.30-5.90) m/uL Hgb (13.5-17.5) gm/dL Hct (37.0-53.0) % MCV (80-100) fL MCH (26-34) pg MCHC (32-36) gm/dL Plt Count (140-440) K/uL Neut % (Auto) (42.0-72.0) % Lymph % (Auto) (20-44) % [place] % (Auto) (0.0-11.0) % Eos % (Auto) (0.0-7.0) % Baso % (Auto) (0.0-3.0) % Neut # (Auto) (1.7-7.0) K/uL Lymph # (Auto) (0.90-2.90) K/uL [place] # (Auto) (0.00-0.90) K/UL Eos # (Auto) (0.00-0.50) K/uL Baso # (Auto) (0.00-0.30) K/uL Sodium (135-149) mmol/L Potassium (3.6-5.1) mmol/L Chloride (96-114) mmol/L Carbon Dioxide (20-32) mmol/L Anion Gap (7-15) mEq/L BUN (5-24) mg/dL Creatinine (0.5-1.5) mg/dL Estimated Creat Clear Estimated GFR ml/min Glucose (60-115) mg/dL Calcium (8.4-10.6) mg/dL TSH (0.270-4.200) uIU/mL Urine Color (Yellow) Urine Appearance (Clear) Urine pH (5.0-8.5) Ur Specific [place] (1.000-1.030) Urine Protein (Negative) Urine Glucose (UA) (Negative) Urine Ketones (Negative) Urine Blood (Negative) Urine Nitrite (Negative) Urine Bilirubin (Negative) Urine Urobilinogen (0.2-1.0) Ur Leukocyte Esterase (Negative) Urine RBC (0-2) Urine WBC (0-5) Ur Squamous Epith Cells (None-Few) Urine Bacteria (None) Urine Mucus (None) Salicylates (1.0-10) mg/dL Urine Opiates Screen (Negative) Ur Oxycodone Screen (Negative) Urine Methadone Screen (Negative) Acetaminophen (10.0-30.0) ug/mL Ur Barbiturates Screen (Negative) U Tricyclic Antidepress (Negative) Ur Phencyclidine Scrn (Negative) Ur Amphetamines Screen (Negative) U Methamphetamines Scrn (Negative) U Benzodiazepines Scrn (Negative) Urine Cocaine Screen (Negative) U Marijuana (THC) Screen (Negative) Ur Drug Screen Comment Ethyl Alcohol < 0.01 L (0.01-0.03) % SARS-CoV-2 (PCR) Negative SARS-CoV-2 (Negative) <Luna Mcduffie MD - Last Filed: 05/10/24 07:53> Lab Results 05/08/24 05/08/24 05/09/24 Range/Units 00:21 12:38 00:21 WBC 6.85 (4.50-11.00) K/uL RBC 4.47 (4.30-5.90) m/uL Hgb 14.1 (13.5-17.5) gm/dL Hct 40.9 (37.0-53.0) % MCV 92 (80-100) fL MCH 32 (26-34) pg MCHC 35 (32-36) gm/dL Plt Count 250 (140-440) K/uL Neut % (Auto) 51.6 (42.0-72.0) % Lymph % (Auto) 43.5 (20-44) % [place] % (Auto) 5.3 (0.0-11.0) % Eos % (Auto) 0.4 (0.0-7.0) % Baso % (Auto) 0.1 (0.0-3.0) % Neut # (Auto) 3.50 (1.7-7.0) K/uL Lymph # (Auto) 3.00 H (0.90-2.90) K/uL [place] # (Auto) 0.40 (0.00-0.90) K/UL Eos # (Auto) 0.00 (0.00-0.50) K/uL Baso # (Auto) 0.00 (0.00-0.30) K/uL Sodium 139 (135-149) mmol/L Potassium 3.5 L (3.6-5.1) mmol/L Chloride 104 (96-114) mmol/L Carbon Dioxide 23 (20-32) mmol/L Anion Gap 12 (7-15) mEq/L BUN 9 (5-24) mg/dL Creatinine 0.5 (0.5-1.5) mg/dL Estimated Creat Clear 257.04 Estimated GFR 150 ml/min Glucose 87 (60-115) mg/dL Calcium 9.1 (8.4-10.6) mg/dL TSH 3.600 (0.270-4.200) uIU/mL Urine Color [place] A (Yellow) Urine Appearance Clear (Clear) Urine pH 6.0 (5.0-8.5) Ur Specific [place] >= 1.030 (1.000-1.030) Urine Protein 1+ A (Negative) Urine Glucose (UA) Negative (Negative) Urine Ketones 3+ A (Negative) Urine Blood Negative (Negative) Urine Nitrite Negative (Negative) Urine Bilirubin 2+ A (Negative) Urine Urobilinogen 1.0 (0.2-1.0) Ur Leukocyte Esterase Negative (Negative) Urine RBC 0-2 (0-2) Urine WBC 0-2 (0-5) Ur Squamous Epith Cells Few (None-Few) Urine Bacteria Few A (None) Urine Mucus Moderate A (None) Salicylates < 1.0 L (1.0-10) mg/dL Urine Opiates Screen Negative (Negative) Ur Oxycodone Screen Negative (Negative) Urine Methadone Screen Negative (Negative) Acetaminophen < 10.0 L (10.0-30.0) ug/mL Ur Barbiturates Screen Negative (Negative) U Tricyclic Antidepress Negative (Negative) Ur Phencyclidine Scrn Negative (Negative) Ur Amphetamines Screen Negative (Negative) U Methamphetamines Scrn Negative (Negative) U Benzodiazepines Scrn POSITIVE A (Negative) Urine Cocaine Screen Negative (Negative) U Marijuana (THC) Screen POSITIVE A (Negative) Ur Drug Screen Comment See Note Ethyl Alcohol 0.12 H (0.01-0.03) % SARS-CoV-2 (PCR) (Negative) 05/09/24 05/10/24 Range/Units 13:15 13:10 WBC (4.50-11.00) K/uL RBC (4.30-5.90) m/uL Hgb (13.5-17.5) gm/dL Hct (37.0-53.0) % MCV (80-100) fL MCH (26-34) pg MCHC (32-36) gm/dL Plt Count (140-440) K/uL Neut % (Auto) (42.0-72.0) % Lymph % (Auto) (20-44) % [place] % (Auto) (0.0-11.0) % Eos % (Auto) (0.0-7.0) % Baso % (Auto) (0.0-3.0) % Neut # (Auto) (1.7-7.0) K/uL Lymph # (Auto) (0.90-2.90) K/uL [place] # (Auto) (0.00-0.90) K/UL Eos # (Auto) (0.00-0.50) K/uL Baso # (Auto) (0.00-0.30) K/uL Sodium (135-149) mmol/L Potassium (3.6-5.1) mmol/L Chloride (96-114) mmol/L Carbon Dioxide (20-32) mmol/L Anion Gap (7-15) mEq/L BUN (5-24) mg/dL Creatinine (0.5-1.5) mg/dL Estimated Creat Clear Estimated GFR ml/min Glucose (60-115) mg/dL Calcium (8.4-10.6) mg/dL TSH (0.270-4.200) uIU/mL Urine Color (Yellow) Urine Appearance (Clear) Urine pH (5.0-8.5) Ur Specific [place] (1.000-1.030) Urine Protein (Negative) Urine Glucose (UA) (Negative) Urine Ketones (Negative) Urine Blood (Negative) Urine Nitrite (Negative) Urine Bilirubin (Negative) Urine Urobilinogen (0.2-1.0) Ur Leukocyte Esterase (Negative) Urine RBC (0-2) Urine WBC (0-5) Ur Squamous Epith Cells (None-Few) Urine Bacteria (None) Urine Mucus (None) Salicylates (1.0-10) mg/dL Urine Opiates Screen (Negative) Ur Oxycodone Screen (Negative) Urine Methadone Screen (Negative) Acetaminophen (10.0-30.0) ug/mL Ur Barbiturates Screen (Negative) U Tricyclic Antidepress (Negative) Ur Phencyclidine Scrn (Negative) Ur Amphetamines Screen (Negative) U Methamphetamines Scrn (Negative) U Benzodiazepines Scrn (Negative) Urine Cocaine Screen (Negative) U Marijuana (THC) Screen (Negative) Ur Drug Screen Comment Ethyl Alcohol < 0.01 L (0.01-0.03) % SARS-CoV-2 (PCR) Negative SARS-CoV-2 (Negative) <Kelli Medrano MD - Last Filed: 05/12/24 00:11> Lab Results 05/08/24 05/08/24 05/09/24 Range/Units 00:21 12:38 00:21 WBC 6.85 (4.50-11.00) K/uL RBC 4.47 (4.30-5.90) m/uL Hgb 14.1 (13.5-17.5) gm/dL Hct 40.9 (37.0-53.0) % MCV 92 (80-100) fL MCH 32 (26-34) pg MCHC 35 (32-36) gm/dL Plt Count 250 (140-440) K/uL Neut % (Auto) 51.6 (42.0-72.0) % Lymph % (Auto) 43.5 (20-44) % [place] % (Auto) 5.3 (0.0-11.0) % Eos % (Auto) 0.4 (0.0-7.0) % Baso % (Auto) 0.1 (0.0-3.0) % Neut # (Auto) 3.50 (1.7-7.0) K/uL Lymph # (Auto) 3.00 H (0.90-2.90) K/uL [place] # (Auto) 0.40 (0.00-0.90) K/UL Eos # (Auto) 0.00 (0.00-0.50) K/uL Baso # (Auto) 0.00 (0.00-0.30) K/uL Sodium 139 (135-149) mmol/L Potassium 3.5 L (3.6-5.1) mmol/L Chloride 104 (96-114) mmol/L Carbon Dioxide 23 (20-32) mmol/L Anion Gap 12 (7-15) mEq/L BUN 9 (5-24) mg/dL Creatinine 0.5 (0.5-1.5) mg/dL Estimated Creat Clear 257.04 Estimated GFR 150 ml/min Glucose 87 (60-115) mg/dL Calcium 9.1 (8.4-10.6) mg/dL TSH 3.600 (0.270-4.200) uIU/mL Urine Color [place] A (Yellow) Urine Appearance Clear (Clear) Urine pH 6.0 (5.0-8.5) Ur Specific [place] >= 1.030 (1.000-1.030) Urine Protein 1+ A (Negative) Urine Glucose (UA) Negative (Negative) Urine Ketones 3+ A (Negative) Urine Blood Negative (Negative) Urine Nitrite Negative (Negative) Urine Bilirubin 2+ A (Negative) Urine Urobilinogen 1.0 (0.2-1.0) Ur Leukocyte Esterase Negative (Negative) Urine RBC 0-2 (0-2) Urine WBC 0-2 (0-5) Ur Squamous Epith Cells Few (None-Few) Urine Bacteria Few A (None) Urine Mucus Moderate A (None) Salicylates < 1.0 L (1.0-10) mg/dL Urine Opiates Screen Negative (Negative) Ur Oxycodone Screen Negative (Negative) Urine Methadone Screen Negative (Negative) Acetaminophen < 10.0 L (10.0-30.0) ug/mL Ur Barbiturates Screen Negative (Negative) U Tricyclic Antidepress Negative (Negative) Ur Phencyclidine Scrn Negative (Negative) Ur Amphetamines Screen Negative (Negative) U Methamphetamines Scrn Negative (Negative) U Benzodiazepines Scrn POSITIVE A (Negative) Urine Cocaine Screen Negative (Negative) U Marijuana (THC) Screen POSITIVE A (Negative) Ur Drug Screen Comment See Note Ethyl Alcohol 0.12 H (0.01-0.03) % SARS-CoV-2 (PCR) (Negative) 05/09/24 05/10/24 Range/Units 13:15 13:10 WBC (4.50-11.00) K/uL RBC (4.30-5.90) m/uL Hgb (13.5-17.5) gm/dL Hct (37.0-53.0) % MCV (80-100) fL MCH (26-34) pg MCHC (32-36) gm/dL Plt Count (140-440) K/uL Neut % (Auto) (42.0-72.0) % Lymph % (Auto) (20-44) % [place] % (Auto) (0.0-11.0) % Eos % (Auto) (0.0-7.0) % Baso % (Auto) (0.0-3.0) % Neut # (Auto) (1.7-7.0) K/uL Lymph # (Auto) (0.90-2.90) K/uL [place] # (Auto) (0.00-0.90) K/UL Eos # (Auto) (0.00-0.50) K/uL Baso # (Auto) (0.00-0.30) K/uL Sodium (135-149) mmol/L Potassium (3.6-5.1) mmol/L Chloride (96-114) mmol/L Carbon Dioxide (20-32) mmol/L Anion Gap (7-15) mEq/L BUN (5-24) mg/dL Creatinine (0.5-1.5) mg/dL Estimated Creat Clear Estimated GFR ml/min Glucose (60-115) mg/dL Calcium (8.4-10.6) mg/dL TSH (0.270-4.200) uIU/mL Urine Color (Yellow) Urine Appearance (Clear) Urine pH (5.0-8.5) Ur Specific [place] (1.000-1.030) Urine Protein (Negative) Urine Glucose (UA) (Negative) Urine Ketones (Negative) Urine Blood (Negative) Urine Nitrite (Negative) Urine Bilirubin (Negative) Urine Urobilinogen (0.2-1.0) Ur Leukocyte Esterase (Negative) Urine RBC (0-2) Urine WBC (0-5) Ur Squamous Epith Cells (None-Few) Urine Bacteria (None) Urine Mucus (None) Salicylates (1.0-10) mg/dL Urine Opiates Screen (Negative) Ur Oxycodone Screen (Negative) Urine Methadone Screen (Negative) Acetaminophen (10.0-30.0) ug/mL Ur Barbiturates Screen (Negative) U Tricyclic Antidepress (Negative) Ur Phencyclidine Scrn (Negative) Ur Amphetamines Screen (Negative) U Methamphetamines Scrn (Negative) U Benzodiazepines Scrn (Negative) Urine Cocaine Screen (Negative) U Marijuana (THC) Screen (Negative) Ur Drug Screen Comment Ethyl Alcohol < 0.01 L (0.01-0.03) % SARS-CoV-2 (PCR) Negative SARS-CoV-2 (Negative) <Taj Samuels MD - Last Filed: 05/09/24 23:26> Discharge Plan Discharge Clinical Impression: Suicidal ideation <Dana Oquendo MD - Last Filed: 05/11/24 12:12> Patient Disposition: Xfer [facility] <Dana Oquendo MD - Last Filed: 05/11/24 12:12> Prescriptions: No Action trazodone 100 mg tablet 100 mg PO QPM PRN (Reason: insomnia) <Dana Oquendo MD - Last Filed: 05/11/24 12:12> Stand Alone Forms: [facility] Info Instructions <Dana Oquendo MD - Last Filed: 05/11/24 12:12>
[2024-05-08] MEDS: OLANZapine 5 MG/ML inj 10 MG IM (23:19)
[2024-05-09] VITALS (30 sets, daily range): BP systolic 88–121; BP diastolic 46–76; PULSE 52–100; RESP 16; TEMP 36.6–37.2; O2SAT 92–98
[2024-05-09 01:01] LABS: Salicylate* < 1.0 mg/dL (1.0-10)
[2024-05-09 01:02] LABS: Acetaminophen* < 10.0 ug/mL (10.0-30.0); Ethanol* 0.12 % (0.01-0.03)
[2024-05-09 01:03] LABS: Anion Gap 12 mEq/L (7-15); Blood Urea Nitrogen* 9 mg/dL (5-24); Calcium* 9.1 mg/dL (8.4-10.6); Carbon Dioxide* 23 mmol/L (20-32); Chloride* 104 mmol/L (96-114); Creatinine* 0.5 mg/dL (0.5-1.5); Est. Creatinine Clearance* 257.04; Estimated Glomerular Filt Rate 150 ml/min; Glucose* 87 mg/dL (60-115); Potassium* 3.5 mmol/L (3.6-5.1); Sodium* 139 mmol/L (135-149)
[2024-05-09 01:43] LABS: Hematocrit 40.9 % (37.0-53.0); Hemoglobin* 14.1 gm/dL (13.5-17.5); Lymphocytes Percent Auto 43.5 % (20-44); Mean Corpuscular HGB Conc 35 gm/dL (32-36); Mean Corpuscular Hemoglobin 32 pg (26-34); Mean Corpuscular Volume 92 fL (80-100); Neutrophils Percent Auto 51.6 % (42.0-72.0); Platelet Count* 250 K/uL (140-440); Red Blood Count 4.47 m/uL (4.30-5.90); White Blood Count* 6.85 K/uL (4.50-11.00)
[2024-05-09 01:44] LABS: Basophils Percent Auto 0.1 % (0.0-3.0); Eosinophils Percent Auto 0.4 % (0.0-7.0); Monocytes Percent Auto 5.3 % (0.0-11.0); Slide Review Reflex No
[2024-05-09 13:56] LABS: SARS PCR* Negative SARS-CoV-2 (Negative)
--- NOTE | 2024-05-09 21:14 | PC.NURSE ---
pt noted to get off of bed to get drinl of water out of sink. steaty gait amd self adjusting on gurnry
--- NOTE | 2024-05-09 21:17 | PC.NURSE ---
pt provided 2 kinds of pop and a urinal. Pt asked what time is it? All cares explained.
--- NOTE | 2024-05-09 23:41 | PC.NURSE ---
pt conntinues to sleep with resting vitals. RR even and unlabored. Pop and urinal remain at BS not used. Security watching pt on camera
[2024-05-10] MEDS: LORazepam 1 MG TABLET PO (02:43)
[2024-05-10 02:45] VITALS: BP 121/58; PULSE 52; RESP 16
--- NOTE | 2024-05-10 02:47 | PC.NURSE ---
checked on pt as now urinal is beside bed but empty. Awake, asking what time it is and if he could have something to help him sleep. meds given as ordered. Aked if I could take his vital signs as pt agreed to. Pleasant and coopertaive with all cares explained including waiting for placement as he asked. Pt thanked this RN for cares.
--- NOTE | 2024-05-10 03:13 | PC.NURSE ---
Pt noted to be up at sink and dumping full urinal down sink drain. Aked pt if he needed something more to help him rest.
[2024-05-10] MEDS: TRAZODONE HCL 50 MG TABLET 100 MG PO ×2 (03:20→21:52)
--- NOTE | 2024-05-10 05:01 | PC.NURSE ---
pt appears to be sleeping. RR even and unlabored.
[2024-05-10 11:06] VITALS: BP 108/72; PULSE 104; RESP 18; O2SAT 97
[2024-05-10 12:46] LABS: Appearance Urine Clear (Clear); Bilirubin Urine 2+ (Negative); Blood Urine Negative (Negative); Color Urine Orange (Yellow); Glucose Urine Negative (Negative); Ketones Urine 3+ (Negative); Leukocyte Esterase Urine Negative (Negative); Nitrite Urine Negative (Negative); Protein Urine 1+ (Negative); Specific Gravity Urine >= 1.030 (1.000-1.030)
[2024-05-10 12:59] LABS: Amphetamine Screen Urine Negative (Negative); Barbiturate Screen Urine Negative (Negative); Benzodiazepines Screen Urine POSITIVE (Negative); Cannabinoid Screen Urine POSITIVE (Negative); Cocaine Screen Urine Negative (Negative); Methadone Screen Urine Negative (Negative); Methamphetamines Screen Urine Negative (Negative); Opiate Screen Urine Negative (Negative); Oxycodone Screen Urine Negative (Negative); Phencyclidine Screen Urine Negative (Negative); Tricyclic Antidepressant Urine Negative (Negative)
[2024-05-10 13:03] LABS: RBC Urine 0-2 (0-2); WBC Urine 0-2 (0-5)
[2024-05-10 13:04] LABS: Bacteria Urine Few; Mucus Urine Moderate; Squamous Epithelial Cell Urine Few (None-Few)
[2024-05-10 13:39] LABS: Ethanol* < 0.01 % (0.01-0.03)
[2024-05-10 18:36] VITALS: BP 122/81; PULSE 103; RESP 16; O2SAT 98
[2024-05-10] MEDS: NICOTINE 21 MG PATCH 1 PATCH TRANSDERMA (21:52)
[2024-05-10 21:53] VITALS: BP 103/73; PULSE 84; RESP 16; O2SAT 97
[2024-05-10 23:00] VITALS: RESP 16
== END 2024-05-11 07:29 ==
PROVIDERS: Emergency Medicine; Emergency Provider Family Medicine; PCP Internal Medicine
DX: R45.851 Suicidal ideations (principal)
CPT/HCPCS: 36415; 80048; 80143; 80179; 80306; 81001; 82077; 84443; 85025; 87086; 87635; 94761; 96372; 99285; A9270; S4990

== ENCOUNTER 2024-05-11 07:24 | Outpatient (CLI) | payer OTHER, SELFPAY | END 2024-05-11 07:25 | disposition home or self-care (01) | LOC: AMB 05-14 10:41 | PROVIDERS: PCP Internal Medicine; Visit Provider Student in an Organized Health Care Education/Training Program | DX: R45.851 Suicidal ideations (principal) | CPT/HCPCS: A0425; A0429 ==

== ENCOUNTER 2024-08-22 13:37 | Outpatient (CLI) | payer OTHER, SELFPAY | END 2024-08-22 13:38 | disposition home or self-care (01) | LOC: AMB 08-24 12:38 | PROVIDERS: PCP Internal Medicine; Visit Provider Family Medicine | DX: F10.129 Alcohol abuse with intoxication, unspecified (principal) | CPT/HCPCS: A0998 ==